=== PATIENT | female | born 1935 | race Caucasian/White ===

== ENCOUNTER 2017-07-23 08:29 | Outpatient (CLI) | payer MEDICARE, BC ==
--- NOTE | 2017-07-23 09:54 | PRG ---
DATE OF SERVICE: 07/23/2017 HISTORY: Ms. Kalie Greenwood is a very pleasant 82-year-old who presents to the [facility] for e valuation of a large blister of the left heel. The patient states that the blister has been present for approximately two weeks. She states that the blister has increased progressively in size over the past 2 weeks. The patient states that she was seen by Dr. Melchor and referred to the [facility] for further evaluation and treatment. The patient states that she is not currently taking any p.o . antibiotics. She denies any history of trauma from shoes precipitating the blister of her left he el. PHYSICAL EXAMINATION: VITAL SIGNS: Temperature 97.4, pulse 70, respirations 18, blood pressure 164/75. Accu-Chek 209. EXTREMITIES: The ulceration over the left lateral heel measures approximately 5.7 x 7.2 cm. An exc isional partial thickness debridement of the blister of the left heel was performed with the use of scissors. A sample of the serous fluid contained within the blister was sent for aerobic and anaero bic cultures. No cellulitis of the left foot is present. No maceration of the skin of the left gulshan t is present. No significant edema of the left foot is present on exam today. ASSESSMENT AND PLAN: 1. Left heel blister as described above. An excisional partial thickness debridement was performed in clinic today and a sample of the fluid contained within the blister was sent for aerobic and aubree erobic cultures. Dressing changes of PolyMem Silver, 4 x 4s and Kerlix will be initiated today. Th shirin dressing changes are to be performed on a daily basis after cleansing and irrigation. Antibioti c therapy will be initiated based upon the results of the cultures obtained today. Ms. Greenwood is to c ontinue the preceding dressing changes until the wound of her left lateral heel has healed completel y. The patient understands and is in agreement with the preceding treatment plan. Ms. Greenwood will be discharged from clinic today with followup on a p.r.n. basis. 2. Diabetes mellitus. The patient's Accu-Chek in clinic today is 209. The patient has been told t hat for optimal wound healing, her blood glucoses should remain below 150. 3. Hypertension. 4. Atrial fibrillation, status post ablation. 5. Coronary artery disease. 6. Chronic obstructive pulmonary disease.
[2017-07-23] MEDS ORDERED: Sodium Chloride 0.9% 15 ML NEB ONE (22:47)
[2017-07-23] MEDS ORDERED: Lidocaine 2% Jelly 5 ML TUBE ONE (22:47)
== END 2017-07-23 08:30 | disposition home or self-care (01) ==
LOC: WCC 08:29
PROVIDERS: ATTEND Family Medicine
DX: E11.621 Type 2 diabetes mellitus with foot ulcer (principal); L97.421 Non-pressure chronic ulcer of left heel and midfoot limited to breakdown of skin; I10 Essential (primary) hypertension; I48.91 Unspecified atrial fibrillation; I25.10 Atherosclerotic heart disease of native coronary artery without angina pectoris; J44.9 Chronic obstructive pulmonary disease, unspecified
CPT/HCPCS: 82962; 87070; 87075; 87205; 97139; 97597; 97598; G0463; 36416; 99213; A4218

== ENCOUNTER 2017-09-27 10:14 | Outpatient (CLI) | payer MEDICARE, BC ==
--- NOTE | 2017-09-27 16:58 | PRG ---
DATE OF SERVICE: 09/27/2017 HISTORY: Ms. Kalie Greenwood is a very pleasant 82-year-old, who presents to the Wound Center for e valuation of multiple breaks in the skin of the left foot. The patient reports discomfort and pain a ssociated with the breaks in the skin of her left foot. She states that the pain and discomfort of h er left foot has become worse with the cold weather. The patient states that she keeps the skin of h er left foot covered with a sock at all times. The patient states that she has been utilizing shoes, which did not come into contact with the skin over the left Achilles tendon. PHYSICAL EXAMINATION: VITAL SIGNS: Temperature 97.5, pulse 70, respirations 20, blood pressure 181/8. Accu-Chek 121. EXTREMITIES: Multiple breaks in the skin over the left foot are present. The largest break is prese nt in the skin over the left heel and measures approximately 0.4 x 0.3 cm. No purulent drainage is a ssociated with any of the breaks in the skin of the left foot. No cellulitis of the left foot is pre sent. No maceration of the skin of the left foot is present. No significant edema of the left foot is present on exam today. ASSESSMENT AND PLAN: 1. Multiple breaks in the skin of the left foot as described above. The largest break in the skin o connie the left foot is present over the left heel and measures approximately 0.3 x 0.4 cm. The patient has been asked to continue to keep the skin of her left foot covered with a sock at all times. She has also been asked to apply Elta cream to the skin of her left foot on a daily basis. The patient u nderstands and is in agreement with the preceding treatment plan. She states she will continue to ut ilize shoes, which did not come into contact with the skin over the left Achilles tendon. Ms. Greenwood w ill be discharged from clinic today with followup on a p.r.n. basis. 2. Diabetes mellitus. The patient's Accu-Chek in clinic today is 121. The patient has been reminde d that for optimal wound healing, her blood glucoses should remain below 150. 3. Hypertension. 4. Atrial fibrillation, status post ablation. 5. Coronary artery disease. 6. Chronic obstructive pulmonary disease.
== END 2017-09-27 10:15 | disposition home or self-care (01) ==
LOC: WCC 10:14
PROVIDERS: ATTEND Family Medicine
DX: L98.8 Other specified disorders of the skin and subcutaneous tissue (principal); E11.9 Type 2 diabetes mellitus without complications; I10 Essential (primary) hypertension; I48.91 Unspecified atrial fibrillation; I25.10 Atherosclerotic heart disease of native coronary artery without angina pectoris; J44.9 Chronic obstructive pulmonary disease, unspecified

== ENCOUNTER 2017-12-31 08:07 | Outpatient (CLI) | payer MEDICARE, BC ==
[2017-12-31] MEDS ORDERED: Sodium Chloride 0.9% 15 ML NEB ONE (09:00)
[2017-12-31] MEDS ORDERED: Lidocaine 2% Jelly 5 ML TUBE ONE (09:00)
--- NOTE | 2017-12-31 09:35 | PRG ---
DATE OF SERVICE: 12/31/2017 SUBJECTIVE: Ms. Kalie Greenwood is a very pleasant 82-year-old who presents to the Wound Center for evaluation of an ulceration over the left posterior heel. The patient states she has been dressing t he ulceration with a Band-Aid. The patient also reports significant pain associated with the ulcerat ion. The patient has no other complaints today. She denies any fever or chills. OBJECTIVE: VITAL SIGNS: Temperature 97.4, pulse 70, respiration 16, blood pressure 148/66, Accu-Chek 119. EXTREMITIES: An ulceration over the left posterior heel is present which measures approximately 1.0 x 0.9 cm. Necrotic and nonviable tissue present within the wound margins was debrided with an excisi onal full-thickness debridement with the use of a curet. No purulent drainage is associated with the wound. No erythema of the skin surrounding the wound is present. No maceration of the skin of the periwound is noted. A dorsalis pedis pulse is palpable on the left. No significant edema of the lef t foot is present on exam today. ASSESSMENT AND PLAN: 1. Ulceration of left posterior heel, dressing changes of Promogran and Silvercel and bordered gauze will be initiated today. These dressing changes are to be performed on a daily basis after cleansin g and irrigation. Arrangements will also be made for the home delivery of dressing supplies. I will see Ms. Greenwood again in one week. 2. Diabetes mellitus. The patient's Accu-Chek in clinic today is 119. The patient has been reminde d that for optimal wound healing, her blood glucoses should remain below 150. 3. Hypertension. 4. Atrial fibrillation, status post ablation. 5. Coronary artery disease. 6. Chronic obstructive pulmonary disease.
== END 2017-12-31 08:08 | disposition home or self-care (01) ==
LOC: WCC 08:07
PROVIDERS: ATTEND Family Medicine
DX: E11.621 Type 2 diabetes mellitus with foot ulcer (principal); L97.429 Non-pressure chronic ulcer of left heel and midfoot with unspecified severity; I10 Essential (primary) hypertension; J44.9 Chronic obstructive pulmonary disease, unspecified; I25.10 Atherosclerotic heart disease of native coronary artery without angina pectoris; I48.91 Unspecified atrial fibrillation
CPT/HCPCS: 11042; A4218

== ENCOUNTER 2018-01-07 12:59 | Outpatient (CLI) | payer MEDICARE, BC ==
[~2018-01-07 12:59] MED LIST: Lidocaine 2% Jelly 5 ML TUBE ONE; Sodium Chloride 0.9% 15 ML NEB ONE
--- NOTE | 2018-01-07 14:22 | PRG ---
DATE OF SERVICE: 01/07/2018 HISTORY: Ms. Kalie Greenwood is a very pleasant 82-year-old who presents to the Wound Center for evaluation of an ulceration over the left posterior heel. Since the patient's last visit, Ms. Greenwood has been receiving dressing changes of Promogran followed by Silvercel with the assistance of Home Health. Again, the patient complains of significant pain associated with the ulceration. Ms. Greenwood has no other complaints today. She denies any fever or chills. PHYSICAL EXAMINATION: VITAL SIGNS: Temperature 97.4, pulse 70, respirations 20, blood pressure 161/ 70. Accu-Chek 176. EXTREMITIES: An ulceration over the left posterior heel is present which measures approximately 1.1 x 1.0 cm. Necrotic and nonviable tissue present within the wound margins was debrided with an excisional full-thickness debridement. No purulent drainage is associated with the wound. No erythema of the skin surrounding the wound is present. No maceration of the skin of the periwound is noted. No significant edema of the left foot is present on exam today. ASSESSMENT AND PLAN: 1. Ulceration of left posterior heel. Dressing changes of Promogran and Silvercel will be continued on a daily basis after cleansing and irrigation with the assistance of Home Health. I will see Ms. Greenwood again in 3 weeks. 2. Diabetes mellitus. The patient's Accu-Chek in clinic today is 176. The patient has been reminded that for optimal wound healing, her blood glucoses should remain below 150. 3. Hypertension. 4. Atrial fibrillation, status post ablation. 5. Coronary artery disease. 6. Chronic obstructive pulmonary disease. [facility]
== END 2018-01-07 13:00 | disposition home or self-care (01) ==
LOC: WCC 12:59
PROVIDERS: ATTEND Family Medicine
DX: E11.621 Type 2 diabetes mellitus with foot ulcer (principal); L97.429 Non-pressure chronic ulcer of left heel and midfoot with unspecified severity; I10 Essential (primary) hypertension; I48.91 Unspecified atrial fibrillation; I25.10 Atherosclerotic heart disease of native coronary artery without angina pectoris; J44.9 Chronic obstructive pulmonary disease, unspecified
CPT/HCPCS: 11042; 36416; A4218

== ENCOUNTER 2018-01-28 13:04 | Outpatient (CLI) | payer MEDICARE, BC ==
--- NOTE | 2018-01-28 14:12 | PRG ---
DATE OF SERVICE: 01/28/2018 HISTORY: Ms. Kalie Greenwood is a very pleasant 82-year-old who presents to the Wound Center for ev aluation of an ulceration of the left posterior heel. Since the patient's last visit, Ms. Greenwood has b een receiving dressing changes of Promogran followed by Silvercel for her left posterior heel ulcerat ion. The patient again complains of significant pain associated with the ulceration. Ms. Greenwood has n o other complaints today. She denies any fever or chills. PHYSICAL EXAMINATION: VITAL SIGNS: Temperature 97.8, pulse 71, respirations 21, blood pressure 140/58. Accu-Chek 121. EXTREMITIES: An ulceration over the left posterior heel is present, which measures approximately 1.0 x 1.0 cm. The dimensions of the wound at the time of the patient's visit on 01/07/2018 were approxi mately 1.1 x 1.0 cm. No purulent drainage is associated with the wound. No erythema of the skin niharika rounding the wound is present. No maceration of the skin of the periwound is noted. No significant edema of the left foot is present on exam today. ASSESSMENT AND PLAN: 1. Ulceration of left posterior heel, dressing changes of Medihoney and bordered gauze will be initi ated today. These dressing changes are to be performed on a daily basis or every other day after martha ansing and irrigation. The patient states she is to undergo percutaneous revascularization of the le ft lower extremity by Dr. Alejo. I will see Ms. Greenwood again after she has undergone percutaneous revascularization of the left lower extremity. 2. Diabetes mellitus. The patient's Accu-Chek in clinic today is 121. The patient has been reminde d that for optimal wound healing, her blood glucoses should remain below 150. 3. Hypertension. 4. Atrial fibrillation, status post ablation. 5. Coronary artery disease. 6. Chronic obstructive pulmonary disease.
== END 2018-01-28 13:05 | disposition home or self-care (01) ==
LOC: WCC 13:04
PROVIDERS: ATTEND Family Medicine
DX: E11.621 Type 2 diabetes mellitus with foot ulcer (principal); L97.429 Non-pressure chronic ulcer of left heel and midfoot with unspecified severity; I10 Essential (primary) hypertension; I48.91 Unspecified atrial fibrillation; I25.10 Atherosclerotic heart disease of native coronary artery without angina pectoris; J44.9 Chronic obstructive pulmonary disease, unspecified
CPT/HCPCS: 97602

== ENCOUNTER 2018-04-15 10:18 | Outpatient (CLI) | payer MEDICARE, BC ==
[~2018-04-15 10:18] MED LIST changes: -Lidocaine 2% Jelly 5 ML TUBE ONE
--- NOTE | 2018-04-15 11:25 | PRG ---
DATE OF SERVICE: 04/15/2018 HISTORY: Ms. Kalie Greenwood is a very pleasant 82-year-old, who presents to the Wound Center for e valuation of multiple ulcerations of the left posterior and lateral heel. Since the patient's last v isit, Ms. Greenwood has undergone percutaneous revascularization of the left lower extremity by Dr. Porter jakcson. The patient states that she was unable to tolerate dressing changes of Medihoney due to a burni ng sensation associated with the application of Medihoney to her wounds. Again, the patient complain s of significant pain associated with her ulcerations. The patient has no other complaints today. S he denies any fever or chills. PHYSICAL EXAMINATION: VITAL SIGNS: Temperature 97.3, pulse 69, respirations 22, blood pressure 152/86. Accu-Chek 134. EXTREMITIES: Three ulcerations of the left posterior and lateral heel are present, which measure chano roximately 0.2 x 0.2 cm, 0.2 x 0.2 cm, and 0.5 x 0.6 cm. No purulent drainage is associated with any of the wounds. No cellulitis of the left heel is appreciated. No maceration of the skin of the per iwound of any of the wounds is noted. No significant edema of the left foot is present on exam today . ASSESSMENT AND PLAN: 1. Ulcerations of left posterior and lateral heel. Dressing changes of Promogran and Mepilex border will be initiated today. These dressing changes are to be performed 3 times per week after cleansin g and irrigation with the assistance of Home Health. As stated above, since the patient was last see n in the Wound Center, Ms. Greenwood has undergone percutaneous revascularization of the left lower extrem ity by Dr. Alejo. I will see Ms. Greenwood again in 2 weeks. 2. Diabetes mellitus. The patient's Accu-Chek in clinic today is 134. The patient has been reminde d that for optimal wound healing, her blood glucoses should remain below 150. 3. Hypertension. 4. Atrial fibrillation, status post ablation. 5. Coronary artery disease. 6. Chronic obstructive pulmonary disease.
== END 2018-04-15 10:19 | disposition home or self-care (01) ==
LOC: WCC 10:18
PROVIDERS: ATTEND Family Medicine
DX: E11.621 Type 2 diabetes mellitus with foot ulcer (principal); L97.429 Non-pressure chronic ulcer of left heel and midfoot with unspecified severity; I10 Essential (primary) hypertension; I25.10 Atherosclerotic heart disease of native coronary artery without angina pectoris; J44.9 Chronic obstructive pulmonary disease, unspecified; I48.91 Unspecified atrial fibrillation; Z98.890 Other specified postprocedural states
CPT/HCPCS: A4218

== ENCOUNTER 2018-05-08 08:10 | Outpatient (CLI) | payer MEDICARE, BC ==
--- NOTE | 2018-05-08 08:56 | PRG ---
DATE OF SERVICE: 05/08/2018 HISTORY: Ms. Kalie Greenwood is a very pleasant 83-year-old who presents to the Wound Center for ev aluation of an ulceration of the left posterior heel. At the time of the patient's last visit, Ms. Ronel alicea stated that she had recently undergone percutaneous revascularization of the left lower extremity by Dr. Alejo. The patient also stated that she was unable to tolerate dressing changes of Medih oney due to a burning sensation associated with the application of Medihoney to her wounds. Again to day, Ms. Greenwood complains of significant pain associated with her ulceration. PHYSICAL EXAMINATION: VITAL SIGNS: Temperature 97.5, pulse 70, respirations 18, blood pressure 117/56. Accu-Chek 124. EXTREMITIES: One ulceration of the left posterior heel is present which measures approximately 2.2 x 2.0 cm. No purulent drainage is associated with the wound. No cellulitis of the left heel is appre ciated. No maceration of the skin of the periwound is noted. A dorsalis pedis pulse is palpable on the left. No significant edema of the left foot is present on exam today. ASSESSMENT AND PLAN: 1. Ulceration of left posterior heel. Dressing changes of Promogran will be discontinued. Dressing changes of Aquacel AG and Mepilex border will be initiated today. These dressing changes are to be performed 3 times per week after cleansing and irrigation with the assistance of Home Health. As sta nubia above, the patient recently underwent percutaneous revascularization of the left lower extremity by Dr. Alejo. I will see Ms. Greenwood again in two weeks. 2. Diabetes mellitus. The patient's Accu-Chek in clinic today is 124. The patient has been reminde d that for optimal wound healing, her blood glucoses should remain below 150. 3. Hypertension. 4. Atrial fibrillation, status post ablation. 5. Coronary artery disease. 6. Chronic obstructive pulmonary disease.
== END 2018-05-08 08:11 | disposition home or self-care (01) ==
LOC: WCC 08:10
PROVIDERS: ATTEND Family Medicine
DX: E11.621 Type 2 diabetes mellitus with foot ulcer (principal); L97.429 Non-pressure chronic ulcer of left heel and midfoot with unspecified severity; I10 Essential (primary) hypertension; I25.10 Atherosclerotic heart disease of native coronary artery without angina pectoris; J44.9 Chronic obstructive pulmonary disease, unspecified

== ENCOUNTER 2018-05-29 08:26 | Outpatient (CLI) | payer MEDICARE, BC ==
--- NOTE | 2018-05-29 10:08 | PRG ---
DATE OF SERVICE: 05/29/2018 HISTORY: Ms. Kalie Greenwood is a very pleasant 83-year-old who presents to the Wound Center for ev aluation of an ulceration of the left posterior heel. At the time of a previous visit, Ms. Greenwood stat ed that she had undergone percutaneous revascularization of the left lower extremity by Dr. Alejo . For the ulceration, the patient has received a trial of dressing changes with Medihoney in additio n to a trial of dressing changes with Promogran. Since the patient's last visit, Ms. Greenwood has receiv ed dressing changes of Aquacel AG and Mepilex border 3 times per week after cleansing and irrigation with the assistance of Home Health. PHYSICAL EXAMINATION: VITAL SIGNS: Temperature 97.6, pulse 70, respirations 21, blood pressure 144/65. Accu-Chek 157. EXTREMITIES: One ulceration of the left posterior heel is present, which measures approximately 2.2 x 1.5 cm. The dimensions of the wound at the time of the patient's visit on 05/08/2018 were approxim ately 2.2 x 2.0 cm. No purulent drainage is associated with the wound. No cellulitis of the left he el is appreciated. No maceration of the skin of the periwound is noted. A dorsalis pedis pulse is p alpable on the left. No significant edema of the left foot is present on exam today. ASSESSMENT AND PLAN: 1. Ulceration of left posterior heel. Dressing changes of Aquacel AG and Mepilex border will be con tinued 3 times per week after cleansing and irrigation with the assistance of Home Health. As stated above, the patient has undergone percutaneous revascularization of the left lower extremity by Dr. Yousuf graham. I will see Ms. Greenwood again in two weeks. 2. Diabetes mellitus. The patient's Accu-Chek in clinic today is 157. The patient has been reminde d that for optimal wound healing, her blood glucoses should remain below 150. 3. Hypertension. 4. Atrial fibrillation, status post ablation. 5. Coronary artery disease. 6. Chronic obstructive pulmonary disease.
[2018-05-29] MEDS ORDERED: Sodium Chloride 0.9% 15 ML NEB ONE (16:00)
== END 2018-05-29 08:27 | disposition home or self-care (01) ==
LOC: WCC 08:26
PROVIDERS: ATTEND Family Medicine
DX: E11.621 Type 2 diabetes mellitus with foot ulcer (principal); L97.429 Non-pressure chronic ulcer of left heel and midfoot with unspecified severity; I10 Essential (primary) hypertension; I48.91 Unspecified atrial fibrillation; I25.10 Atherosclerotic heart disease of native coronary artery without angina pectoris; J44.9 Chronic obstructive pulmonary disease, unspecified
CPT/HCPCS: 36416; 97602; A4218

== ENCOUNTER 2018-06-19 08:35 | Outpatient (CLI) | payer MEDICARE, BC ==
--- NOTE | 2018-06-19 09:50 | PRG ---
DATE OF SERVICE: 06/19/2018 HISTORY: Ms. Kalie Greenwood is a very pleasant 83-year-old, who presents to the Wound Center for e valuation of an ulceration of the left posterior heel. At the time of a previous visit, Ms. Greenwood sta nubia that she had undergone percutaneous revascularization of the left lower extremity by Dr. Vonda lopez. For the ulceration, the patient has received a trial of dressing changes with Medihoney, in addit ion to a trial of dressing changes with Promogran. The patient has also received a trial of dressing changes with Aquacel AG followed by Mepilex border 3 times per week after cleansing and irrigation w ith the assistance of Home Health. PHYSICAL EXAMINATION: VITAL SIGNS: Temperature 98.3, pulse 72, respirations 16, blood pressure 134/61. EXTREMITIES: One ulceration of the left posterior heel is present, which measures approximately 2.2 x 1.4 cm. The dimensions of the wound at the time of the patient's visit on 05/29/2018 were approxim ately 2.2 x 1.5 cm. No purulent drainage is associated with the wound. No cellulitis of the left he el is appreciated. No maceration of the skin of the periwound is noted. A dorsalis pedis pulse is p alpable on the left. No significant edema of the left foot is present on exam today. ASSESSMENT AND PLAN: 1. Ulceration of left posterior heel. Dressing changes of Aquacel AG and Mepilex border are to be p erformed 3 times per week after cleansing and irrigation with the assistance of Home Health. As stat ed above, the patient has undergone percutaneous revascularization of the left lower extremity by Dr. Alejo. I will see Ms. Greenwood again in 2 weeks. At this time, consideration will be given to juliane tment with a skin substitute, specifically Hyalomatrix, if the ulceration is still present at this ti me. 2. Diabetes mellitus. Accu-Cheks will be obtained at the time of the patient's clinic visits. The patient has been reminded that, for optimal wound healing, her blood glucoses should remain below 150 . 3. Hypertension. 4. Atrial fibrillation, status post ablation. 5. Coronary artery disease. 6. Chronic obstructive pulmonary disease.
[2018-06-19] MEDS ORDERED: Sodium Chloride 0.9% 15 ML NEB ONE (15:00)
== END 2018-06-19 08:36 | disposition home or self-care (01) ==
LOC: WCC 08:35
PROVIDERS: ATTEND Family Medicine
DX: E11.621 Type 2 diabetes mellitus with foot ulcer (principal); L97.429 Non-pressure chronic ulcer of left heel and midfoot with unspecified severity; I10 Essential (primary) hypertension; I48.91 Unspecified atrial fibrillation; I25.10 Atherosclerotic heart disease of native coronary artery without angina pectoris; J44.9 Chronic obstructive pulmonary disease, unspecified
CPT/HCPCS: 36416; 97602; A4218

== ENCOUNTER 2018-07-03 08:39 | Outpatient (CLI) | payer MEDICARE, BC ==
--- NOTE | 2018-07-03 10:32 | PRG ---
DATE OF SERVICE: 07/03/2018 HISTORY: Ms. Kalie Greenwood is a very pleasant 83-year-old who presents to the Wound Center for e valuation of an ulceration of the left posterior heel. At the time of a previous visit, Ms. Greenwood sta nubia that she had undergone percutaneous revascularization of the left lower extremity by Dr. Vonda lopez. For the ulceration, the patient has received a trial of dressing changes with Medihoney in additi on to a trial of dressing changes with Promogran. The patient has also received a trial of dressing changes with Aquacel AG followed by Mepilex border 3 times per week after cleansing and irrigation wi th the assistance of Home Health. PHYSICAL EXAMINATION: VITAL SIGNS: Temperature 97.6, pulse 69, respirations 19, blood pressure 161/70. Accu-Chek 154. EXTREMITIES: One ulceration of the left posterior heel is present, which measures approximately 2.2 x 1.6 cm. The dimensions of the wound at the time of the patient's visit on 06/19/2018 were approxim ately 2.2 x 1.4 cm. Granulation tissue is visible within the wound margins. No purulent drainage is associated with the wound. No cellulitis of the left heel is appreciated. No maceration of the ski n of the periwound is noted. No significant edema of the left foot is present on exam today. Hyalom atrix was applied to the wound bed of the ulceration after copious irrigation of the wound bed with n ormal saline. Prior to application of the Hyalomatrix, the silicone layer was fenestrated with a sca lpel. Adaptic was placed over the silicone layer followed by 4 x 4s, ABD, and Kerlix. ASSESSMENT AND PLAN: 1. Ulceration of left posterior heel. Hyalomatrix was applied to the wound bed of the ulceration to day. Orders will be transmitted to Home Health for dressing changes of Adaptic, 4 x 4s and an ABD an d Kerlix 3 times per week. As stated above, the patient has undergone percutaneous revascularization of the left lower extremity by Dr. Alejo. I will see Ms. Greenwood again in one week. At this time, consideration will be given to another placement of Hyalomatrix. 2. Diabetes mellitus. The patient's Accu-Chek in clinic today is 154. The patient has been reminde d that for optimal wound healing, her blood glucoses should remain below 150. 3. Hypertension. 4. Atrial fibrillation, status post ablation. 5. Coronary artery disease. 6. Chronic obstructive pulmonary disease.
[2018-07-03] MEDS ORDERED: Sodium Chloride 0.9% 15 ML NEB ONE (15:51)
== END 2018-07-03 08:40 | disposition home or self-care (01) ==
LOC: WCC 08:39
PROVIDERS: ATTEND Family Medicine
DX: E11.621 Type 2 diabetes mellitus with foot ulcer (principal); L97.429 Non-pressure chronic ulcer of left heel and midfoot with unspecified severity; I10 Essential (primary) hypertension; I48.91 Unspecified atrial fibrillation; I25.10 Atherosclerotic heart disease of native coronary artery without angina pectoris; J44.9 Chronic obstructive pulmonary disease, unspecified
CPT/HCPCS: A4218; C5275; Q4117

== ENCOUNTER 2018-07-10 08:11 | Outpatient (CLI) | payer MEDICARE, BC ==
--- NOTE | 2018-07-10 09:20 | PRG ---
DATE OF SERVICE: 07/10/2018 HISTORY: Ms. Kalie Greenwood is a very pleasant 83-year-old who presents to the Wound Center for ev aluation of an ulceration of the left posterior heel. At the time of a previous visit, Ms. Greenwood stat ed that she had undergone percutaneous revascularization of the left lower extremity by Dr. Cristian larose. For the ulceration and the patient received a trial of dressing changes with Medihoney in ad dition to a trial of dressing changes with Promogran. The patient also received a trial of dressing changes with Aquacel AG followed by Mepilex border 3 times per week after cleansing and irrigation wi th the assistance of Home Health. At the time of the patient's last visit Hyalomatrix was applied to the wound bed of the ulceration. PHYSICAL EXAMINATION: VITAL SIGNS: Temperature 97.6, pulse 70, respirations 24, blood pressure 137/98. Accu-Chek 134. EXTREMITIES: One ulceration of the left posterior heel is present which measures approximately 2.0 x 2.2 cm. No purulent drainage is associated with the wound. No cellulitis of the left heel is appre ciated. No maceration of the skin of the periwound is noted. A dorsalis pedis pulse is palpable on the left. No significant edema of the left foot is present on exam today. The Hyalomatrix along wit h the silicone layer is intact over the wound bed of the ulceration. ASSESSMENT AND PLAN: 1. Ulceration of left posterior heel. The patient is receiving treatment with Hyalomatrix. Orders will be transmitted to Home Health for dressing changes of Adaptic, an ABD and Kerlix 3 times per radha lantigua. As stated above, the patient has undergone percutaneous revascularization of the left lower extre mity by Dr. Alejo. I will see Ms. Greenwood again in 2 weeks. 2. Diabetes mellitus. The patient's Accu-Chek in clinic today is 134. The patient has been reminde d that for optimal wound healing, her blood glucoses should remain below 150. 3. Hypertension. 4. Atrial fibrillation, status post ablation. 5. Coronary artery disease. 6. Chronic obstructive pulmonary disease.
[2018-07-10] MEDS ORDERED: Sodium Chloride 0.9% 15 ML NEB ONE (09:56)
== END 2018-07-10 08:12 | disposition home or self-care (01) ==
LOC: WCC 08:11
PROVIDERS: ATTEND Family Medicine
DX: E11.621 Type 2 diabetes mellitus with foot ulcer (principal); L97.429 Non-pressure chronic ulcer of left heel and midfoot with unspecified severity; J44.9 Chronic obstructive pulmonary disease, unspecified; I25.10 Atherosclerotic heart disease of native coronary artery without angina pectoris; I10 Essential (primary) hypertension; I48.91 Unspecified atrial fibrillation
CPT/HCPCS: 97602; A4218

== ENCOUNTER 2018-07-24 08:52 | Outpatient (CLI) | payer MEDICARE, BC ==
--- NOTE | 2018-07-24 09:58 | PRG ---
DATE OF SERVICE: 07/24/2018 HISTORY: Ms. Kalie Greenwood is a very pleasant 83-year-old who presents to the [facility] for ev aluation of an ulceration of the left posterior heel. At the time of a previous visit, Ms. Greenwood stat ed that she had undergone percutaneous revascularization of the left lower extremity by Dr. Cristian larose. For the ulceration the patient has received a trial of dressing changes with Medihoney in ad dition to a trial of dressing changes with Promogran. The patient also received a trial of dressing changes with Aquacel AG followed by Mepilex border 3 times per week after cleansing and irrigation wi th the assistance of Home Health. Presently, the patient is receiving treatment with Hyalomatrix. PHYSICAL EXAMINATION: VITAL SIGNS: Temperature 97.6, pulse 69, respirations 18, blood pressure 149/63. Accu-Chek 154. EXTREMITIES: One ulceration of the left posterior heel is present which measures approximately 2.2 x 1.9 cm. The dimensions of the wound at the time of the patient's visit on 07/10/2018 were approxima tely 2.0 x 2.2 cm. No purulent drainage is associated with the wound. Granulation tissue is visible within the wound margins. Nonviable tissue present within the wound margins was debrided with an ex cisional full-thickness debridement with the use of scissors. No cellulitis of the left heel is appr eciated. No maceration of the skin of the periwound is noted. No significant edema of the left foot is present on exam today. Hyalomatrix was applied to the wound bed of the ulceration followed by Ad aptic and Mepilex border. The silicone layer of the Hyalomatrix was fenestrated prior to application of the Hyalomatrix silicone floor layer to the wound bed. ASSESSMENT AND PLAN: 1. Ulceration of left posterior heel. The patient is receiving treatment with Hyalomatrix. Orders will be transmitted to Home Health for dressing changes of Adaptic and Mepilex border 3 times per radha lantigua. As stated above, the patient has undergone percutaneous revascularization of the left lower extre mity by Dr. Alejo. I will see Ms. Greenwood again in 2 weeks. 2. Diabetes mellitus. The patient's Accu-Chek in clinic today is 154. The patient has been reminde d that for optimal wound healing, her blood glucoses should remain below 150. 3. Hypertension. 4. Atrial fibrillation, status post ablation. 5. Coronary artery disease. 6. Chronic obstructive pulmonary disease.
[2018-07-24] MEDS ORDERED: Sodium Chloride 0.9% 15 ML NEB ONE (18:00)
== END 2018-07-24 08:53 | disposition home or self-care (01) ==
LOC: WCC 08:52
PROVIDERS: ATTEND Family Medicine
DX: E11.621 Type 2 diabetes mellitus with foot ulcer (principal); L97.429 Non-pressure chronic ulcer of left heel and midfoot with unspecified severity; I10 Essential (primary) hypertension; I48.91 Unspecified atrial fibrillation; I25.10 Atherosclerotic heart disease of native coronary artery without angina pectoris; J44.9 Chronic obstructive pulmonary disease, unspecified
CPT/HCPCS: 97139; C5275; A4218

== ENCOUNTER 2018-08-07 09:01 | Outpatient (CLI) | payer MEDICARE, BC ==
--- NOTE | 2018-08-07 12:11 | PRG ---
DATE OF SERVICE: 08/07/2018 HISTORY: Ms. Kalie Greenwood is a very pleasant 83-year-old, who presents to the Wound Center for evaluation of an ulceration of the left posterior heel over the Achilles tendon. At the time of her previous visit, Ms. Greenwood stated that she had undergone percutaneous revascularization of the left lower extremity by Dr. Cristian Alejo. For the ulceration, the patient has received a trial of dressing changes with Medihoney in addition to a trial of dressing changes with Promogran. The patient also received a trial of dressing changes with Aquacel Ag followed by Mepilex border three times per week after cleansing and irrigation with the assistance of Home Health. Currently, the patient is receiving treatment with Hyalomatrix. PHYSICAL EXAMINATION: VITAL SIGNS: Temperature 98.1, pulse 70, respirations 17, blood pressure 146/57, and Accu-Chek 122. EXTREMITIES: One ulceration of the left posterior heel is present, which measures approximately 3.0 x 3.0 cm. The dimensions of the wound at the time of the patient's visit on 07/24/2018 were approximately 2.2 x 1.9 cm. A small amount of granulation tissue is visible within the wound margins. No purulent drainage is associated with the wound. Erythema of the skin surrounding the wound is present. No maceration of the skin of the periwound is noted. No significant edema of the left foot is present on exam today. The wound is exquisitely tender to palpation. Tenderness is visible within the wound margins. ASSESSMENT AND PLAN: 1. Ulceration of the left posterior heel. The patient has received treatment with Hyalomatrix. Orders will be transmitted to Home Health for a trial of negative-pressure therapy, in addition, transcutaneous oxygen mapping of the distal left lower extremity will be obtained. As stated above, the patient has undergone percutaneous revascularization of the left lower extremity by Dr. Alejo. I also discussed the treatment and plan with Dr. Alejo. I will see Ms. Greenwood again in two weeks. 2. Diabetes mellitus. The patient's Accu-Chek in clinic today is 122. The patient has been reminded that for optimal wound healing, her blood glucoses should remain below 150. 3. Hypertension. 4. Atrial fibrillation, status post ablation. 5. Coronary artery disease. 6. Chronic obstructive pulmonary disease. Job ID: [id number]
[2018-08-07] MEDS ORDERED: Sodium Chloride 0.9% 15 ML NEB ONE (18:00)
== END 2018-08-07 09:02 | disposition home or self-care (01) ==
LOC: WCC 09:01
PROVIDERS: ATTEND Family Medicine
DX: E11.621 Type 2 diabetes mellitus with foot ulcer (principal); L97.429 Non-pressure chronic ulcer of left heel and midfoot with unspecified severity; I10 Essential (primary) hypertension; I25.10 Atherosclerotic heart disease of native coronary artery without angina pectoris; J44.9 Chronic obstructive pulmonary disease, unspecified
CPT/HCPCS: A4218

== ENCOUNTER 2018-09-05 14:41 | Outpatient (CLI) | payer MEDICARE, BC ==
[2018-09-05] MEDS ORDERED: Sodium Chloride 0.9% 15 ML NEB ONE (15:00)
--- NOTE | 2018-09-05 16:10 | PRG ---
DATE OF SERVICE: 09/05/2018 SUBJECTIVE: Ms. Kalie Greenwood is a very pleasant 83-year-old, who presents to the Wound Center for evaluation of an ulceration of the left posterior heel over the Achilles tendon. The patient is now receiving negative pressure therapy with dressing changes of the wound VAC 3 times per week with the assistance of Home Health. Ms. Greenwood reports less pain associated with her ulceration than at the time of her visit on 08/07/2018. PHYSICAL EXAMINATION: VITAL SIGNS: Temperature 97.6, pulse 70, respirations 20, blood pressure 128/58. Accu-Chek 111. EXTREMITIES: One ulceration of the left posterior heel is present, which measures approximately 5.5 x 3.0 cm. The dimensions of the wound at the time of the patient's visit on 08/07/2018 were approximately 3.0 x 3.0 cm. Granulation tissue is visible within the wound margins. No purulent drainage is associated with the wound. No cellulitis of the left ankle is appreciated on exam today. No significant edema of the left foot is present on exam today. The wound is no longer exquisitely tender to palpation. Tendon is again visible within the wound margins. ASSESSMENT AND PLAN: 1. Ulceration of left posterior heel. Negative pressure therapy will be continued with dressing changes of the wound VAC 3 times per week with the assistance of Home Health. I will see Ms. Greenwood again in 2 weeks. 2. Diabetes mellitus. The patient's Accu-Chek in clinic today is 111. The patient has been reminded that for optimal wound healing her blood glucoses should remain below 150. 3. Hypertension. 4. Atrial fibrillation, status post ablation. 5. Coronary artery disease. 6. Chronic obstructive pulmonary disease. Job ID: [id number]
== END 2018-09-05 14:42 | disposition home or self-care (01) ==
LOC: WCC 14:41
PROVIDERS: ATTEND Family Medicine
DX: E11.621 Type 2 diabetes mellitus with foot ulcer (principal); L97.429 Non-pressure chronic ulcer of left heel and midfoot with unspecified severity; I25.10 Atherosclerotic heart disease of native coronary artery without angina pectoris; J44.9 Chronic obstructive pulmonary disease, unspecified
CPT/HCPCS: 97602; A4218

== ENCOUNTER 2018-09-13 09:01 | Outpatient (CLI) | payer MEDICARE, BC ==
--- NOTE | 2018-09-18 08:30 | TCOM ---
DATE OF STUDY: 09/13/2018 TRANSCUTANEOUS OXIMETRY ASSESSMENT CLINICAL INFORMATION: Ms. Kalie Greenwood is an 83-year-old with a past medical history significant for diabetes mellitus, hypertension, atrial fibrillation, coronary artery disease, and COPD. The patient has an ulceration of the left posterior ankle over the Achilles tendon. The patient is status post percutaneous revascularization of the left lower extremity by Dr. Alejo. IMPRESSION: All transcutaneous oxygen values of the distal left lower extremity, reflex hypoxia under ambient conditions. The response of all values to hyperoxic challenge is consistent with significant regional ischemia. The above study suggests the healing of the left posterior ankle wound may be complicated by a compromise in oxygen dependent wound healing. Job ID: [id number]
== END 2018-09-13 09:02 | disposition home or self-care (01) ==
LOC: HBO 09:01
PROVIDERS: ATTEND Family Medicine
DX: T81.89XD Other complications of procedures, not elsewhere classified, subsequent encounter (principal)
CPT/HCPCS: 93923

== ENCOUNTER 2018-09-19 14:52 | Outpatient (CLI) | payer MEDICARE, BC ==
[~2018-09-19 14:52] MED LIST changes: +Lidocaine 2% Jelly 5 ML TUBE ONE
--- NOTE | 2018-09-19 16:51 | PRG ---
DATE OF SERVICE: 09/19/2018 HISTORY: Ms. Kalie Greenwood is a very pleasant 83-year-old, who presents to the Wound Center for evaluation of an ulceration of the left posterior heel over the Achilles tendon. The patient is now receiving negative pressure therapy with dressing changes of the wound VAC 3 times per week with the assistance of Home Health. The patient has no complaints today. She denies any fever or chills. She states that recently she underwent percutaneous revascularization of the left lower extremity by Dr. Alejo after an earlier left lower extremity percutaneous revascularization also by Dr. Alejo. OBJECTIVE: VITAL SIGNS: Temperature 97.4, pulse 71, respirations 24, blood pressure 123/60. Accu-Chek 160. EXTREMITIES: One ulceration of the left posterior heel is present, which measures approximately 5.9 x 3.0 cm. The dimensions of the wound at the time of the patient's visit on 09/05/2018 were approximately 5.5 x 3.0 cm. Granulation tissue is visible within the wound margins. No purulent drainage is associated with the wound. No cellulitis of the left ankle is appreciated on exam today. No maceration of the skin of the periwound is noted. No significant edema of the left foot is present on exam today. The tendon is again visible within the wound margins. ASSESSMENT AND PLAN: 1. Ulceration of left posterior heel. Negative pressure therapy will be continued with dressing changes of the wound VAC 3 times per week with the assistance of Home Health. I will see Ms. Greenwood again in one week. At this time, consideration will be given to the application of a bioengineered skin substitute in conjunction with negative pressure therapy. The patient also agrees to a trial of hyperbaric oxygen therapy. The patient denies any history of congestive heart failure, seizure disorder, pneumothorax, crushing chest trauma, blood disorders including hereditary spherocytosis, recent retinal surgery, or the administration of any chemotherapeutic agents contraindicating hyperbaric oxygen therapy. The patient understands the risks and benefits of hyperbaric oxygen therapy and wishes to proceed. I have explained to the patient that hyperbaric oxygen therapy is indicated in view of the depth of the wound, Vann grade 3, with tendon exposure and the duration of the wound, which has been present since 05/08/2018. Transcutaneous oxygen mapping of the distal left lower extremity revealed hypoxia of all distal left lower extremity values under ambient conditions. The response of all values to hyperoxic challenge was consistent with significant regional ischemia. 2. Diabetes mellitus. The patient's Accu-Chek in clinic today is 160. The patient has been reminded that for optimal wound healing. Her blood glucoses should remain below 150. 3. Hypertension. 4. Atrial fibrillation, status post ablation. 5. Coronary artery disease. 6. Chronic obstructive pulmonary disease. Job ID: [id number]
== END 2018-09-19 14:53 | disposition home or self-care (01) ==
LOC: WCC 14:52
PROVIDERS: ATTEND Family Medicine
DX: E11.621 Type 2 diabetes mellitus with foot ulcer (principal); L97.429 Non-pressure chronic ulcer of left heel and midfoot with unspecified severity; I10 Essential (primary) hypertension; I48.91 Unspecified atrial fibrillation; I25.10 Atherosclerotic heart disease of native coronary artery without angina pectoris; J44.9 Chronic obstructive pulmonary disease, unspecified
CPT/HCPCS: 36416; 87070; 87205; A4218

== ENCOUNTER 2018-09-23 11:04 | Outpatient (CLI) | payer MEDICARE, BC | END 2018-09-23 11:05 | disposition home or self-care (01) | LOC: HBO 11:04 | PROVIDERS: ATTEND Family Medicine | DX: E11.622 Type 2 diabetes mellitus with other skin ulcer (principal); L97.323 Non-pressure chronic ulcer of left ankle with necrosis of muscle; E11.51 Type 2 diabetes mellitus with diabetic peripheral angiopathy without gangrene | CPT/HCPCS: 93923; 97139; G0277 ==

== ENCOUNTER 2018-09-24 15:25 | Outpatient (CLI) | payer MEDICARE, BC | END 2018-09-24 15:26 | disposition home or self-care (01) | LOC: HBO 15:25 | PROVIDERS: ATTEND Family Medicine | DX: E11.622 Type 2 diabetes mellitus with other skin ulcer (principal); L97.323 Non-pressure chronic ulcer of left ankle with necrosis of muscle; E11.51 Type 2 diabetes mellitus with diabetic peripheral angiopathy without gangrene | CPT/HCPCS: G0277 ==

== ENCOUNTER 2018-09-25 10:51 | Outpatient (CLI) | payer MEDICARE, BC | END 2018-09-25 10:52 | disposition home or self-care (01) | LOC: HBO 10:51 | PROVIDERS: ATTEND Family Medicine | DX: E11.51 Type 2 diabetes mellitus with diabetic peripheral angiopathy without gangrene (principal); E11.621 Type 2 diabetes mellitus with foot ulcer; L97.323 Non-pressure chronic ulcer of left ankle with necrosis of muscle | CPT/HCPCS: G0277 ==

== ENCOUNTER 2018-09-26 11:20 | Outpatient (CLI) | payer MEDICARE, BC ==
[2018-09-26] MEDS ORDERED: Lidocaine 2% PF 5 ML VIAL ONE (15:34)
[2018-09-26] MEDS ORDERED: Sodium Chloride 0.9% 15 ML NEB ONE (15:34)
--- NOTE | 2018-09-26 16:39 | PRG ---
DATE OF SERVICE: 09/26/2018 HISTORY: Ms. Kalie Greenwood is a very pleasant 83-year-old, who presents to the Wound Center for evaluation of an ulceration of the left posterior heel over the Achilles tendon. The patient is presently receiving negative pressure therapy with dressing changes of the wound VAC 3 times per week with the assistance of Home Health. The patient has no complaints today. She denies any fever or chills. The patient recently underwent percutaneous revascularization of the left lower extremity by Dr. Alejo after an earlier left lower extremity percutaneous revascularization also by Dr. Alejo. The patient is also now receiving hyperbaric oxygen therapy for the ulceration of her left posterior heel over the Achilles tendon. PHYSICAL EXAMINATION: VITAL SIGNS: Temperature 97.6, pulse 69, respirations 24, and blood pressure 131/62. Accu-Chek 139. EXTREMITIES: An ulceration of the left posterior heel is present, which measures approximately 6.0 x 3.0 cm. The dimensions of the wound at the time of the patient's visit on 09/19/2018 were approximately 5.9 x 3.0 cm. Granulation tissue is visible within the wound margins. No purulent drainage is associated with the wound. No cellulitis of the left ankle is appreciated. No maceration of the skin of the periwound is noted. No significant edema of the left foot is present on exam today. Again, the tendon is visible within the wound margins. A large portion of the tendon appears to have ruptured. The patient is still able to dorsiflex and plantarflex her left foot. After copious irrigation of the wound, EpiFix 2 x 2 cm was applied to the wound bed of the ulceration over the inferior aspect of the ulceration over the Achilles tendon. The ulceration was then dressed with Adaptic followed by the Granufoam of the wound VAC. ASSESSMENT AND PLAN: 1. Ulceration of left posterior heel. Negative pressure therapy will be continued with dressing changes of the wound VAC with the assistance of Home Health. The next dressing change will be on 09/30/2018. I will see Ms. Greenwood again in 1 week. At this time, consideration will be given to another placement of EpiFix in conjunction with negative pressure therapy. The patient will also continue hyperbaric oxygen therapy. I have discussed the treatment plan with Dr. Mata of Orthopedic Surgery. Orthopedic Surgery will view the wound next week and consider debridement of the Achilles tendon in clinic. I have also discussed the treatment plan with Dr. Alejo. He states that he will see Ms. Greenwood in approximately 4 weeks, and at this time, consideration will be given to repeat percutaneous revascularization if the wound does not appear to be healing in a timely manner. Evaluation by Plastic Surgery for coverage of the Achilles tendon will also be arranged. 2. Diabetes mellitus. The patient's Accu-Chek in clinic today is 139. The patient has been reminded that for optimal wound healing her blood glucoses should remain below 150. 3. Hypertension. 4. Atrial fibrillation, status post ablation. 5. Coronary artery disease. 6. Chronic obstructive pulmonary disease. Job ID: [id number]
== END 2018-09-26 11:21 | disposition home or self-care (01) ==
LOC: HBO 11:20
PROVIDERS: ATTEND Family Medicine
DX: E11.621 Type 2 diabetes mellitus with foot ulcer (principal); L97.429 Non-pressure chronic ulcer of left heel and midfoot with unspecified severity; I10 Essential (primary) hypertension; I48.91 Unspecified atrial fibrillation; I25.10 Atherosclerotic heart disease of native coronary artery without angina pectoris; J44.9 Chronic obstructive pulmonary disease, unspecified
CPT/HCPCS: 82962; Q4186; 36416; A4218; J2001

== ENCOUNTER 2018-10-01 11:00 | Outpatient (CLI) | payer MEDICARE, BC | END 2018-10-01 11:01 | disposition home or self-care (01) | LOC: HBO 11:00 | PROVIDERS: ATTEND Family Medicine | DX: E11.51 Type 2 diabetes mellitus with diabetic peripheral angiopathy without gangrene (principal); L97.323 Non-pressure chronic ulcer of left ankle with necrosis of muscle | CPT/HCPCS: G0277 ==

== ENCOUNTER 2018-10-02 11:25 | Outpatient (CLI) | payer MEDICARE, BC ==
--- NOTE | 2018-10-02 16:44 | PRG ---
DATE OF SERVICE: 10/02/2018 HISTORY: Ms. Kalie Greenwood is a very pleasant 83-year-old, who presents to the Wound Center for evaluation of an ulceration of the left posterior heel over the Achilles tendon. The patient is currently receiving negative pressure therapy with dressing changes of the wound VAC 3 times per week with the assistance of Home Health. The patient recently underwent percutaneous revascularization of the left lower extremity by Dr. Alejo after an earlier left lower extremity percutaneous revascularization also by Dr. Alejo. The patient is also now receiving hyperbaric oxygen therapy for the ulceration of her left posterior heel over the Achilles tendon. At the time of the patient's visit on 09/26/2018, EpiFix was applied to the wound bed of the ulceration for treatment of the wound in conjunction with negative pressure therapy. PHYSICAL EXAMINATION: VITAL SIGNS: Temperature 98.2, pulse 72, respirations 24, blood pressure 126/65. Accu-Chek 147. EXTREMITIES: An ulceration of the left posterior heel is present, which measures approximately 6.1 x 2.8 cm. The dimensions of the wound at the time of the patient's visit on 09/26/2018 were approximately 6.0 x 3.0 cm. Granulation tissue is visible within the wound margins. No purulent drainage is associated with the wound. No cellulitis of the left ankle is appreciated. No maceration of the skin of the periwound is noted. No significant edema of the left foot is present on exam today. Again, tendon is visible within the wound margins. A portion of the tendon appears to have ruptured. ASSESSMENT AND PLAN: 1. Ulceration of left posterior heel. Negative pressure therapy will be continued with dressing changes of the wound VAC with the assistance of Home Health. I will see Ms. Greenwood next week. The patient will also continue hyperbaric oxygen therapy. I have discussed the treatment plan with Dr. Mata of Orthopedic Surgery and Dr. Reyes of Plastic Surgery. Orthopedic Surgery will view the wound next week and consider debridement of the Achilles tendon in clinic. Arrangements will be made for Ms. Greenwood to be seen in consultation by Dr. Reyes in his office. The treatment plan has also been discussed with Dr. Alejo, who states he will consider repeat percutaneous revascularization at the time of the patient's followup visit if the wound does not appear to be healing in a timely manner. 2. Diabetes mellitus. The patient's Accu-Chek in clinic today is 147. The patient has been reminded that for optimal wound healing, her blood glucoses should remain below 150. 3. Hypertension. 4. Atrial fibrillation, status post ablation. 5. Coronary artery disease. 6. Chronic obstructive pulmonary disease. Job ID: [id number]
== END 2018-10-02 11:26 | disposition home or self-care (01) ==
LOC: HBO 11:25
PROVIDERS: ATTEND Family Medicine
DX: E11.622 Type 2 diabetes mellitus with other skin ulcer (principal); L97.429 Non-pressure chronic ulcer of left heel and midfoot with unspecified severity; I25.10 Atherosclerotic heart disease of native coronary artery without angina pectoris; J44.9 Chronic obstructive pulmonary disease, unspecified; I10 Essential (primary) hypertension
CPT/HCPCS: G0277

== ENCOUNTER 2018-10-03 11:24 | Outpatient (CLI) | payer MEDICARE, BC | END 2018-10-03 11:25 | disposition home or self-care (01) | LOC: HBO 11:24 | PROVIDERS: ATTEND Family Medicine | DX: E11.51 Type 2 diabetes mellitus with diabetic peripheral angiopathy without gangrene (principal); E11.622 Type 2 diabetes mellitus with other skin ulcer; L97.323 Non-pressure chronic ulcer of left ankle with necrosis of muscle | CPT/HCPCS: G0277 ==

== ENCOUNTER 2018-10-07 10:42 | Outpatient (CLI) | payer MEDICARE, BC ==
[2018-10-07] MEDS ORDERED: Lidocaine 2% PF 100 mg/5 ml Syringe ONE (15:00)
--- NOTE | 2018-10-07 21:01 | CON ---
DATE OF CONSULTATION: CHIEF COMPLAINT: Posterior heel and Achilles wound, chronic. HISTORY OF PRESENT ILLNESS: Ms. Greenwood is an 83-year-old female who I am seeing in the [facility] Care Clinic as a consultation. The patient has a chronic wound over the Achilles aspect of her posterior heel. This is full-thickness and involves the Achilles tendon. There is necrotic Achilles tendon tissue in the wound. I was consulted to evaluate treatment of this wound. The patient has had longstanding wound care with multiple different modalities including wound VAC and hyperbaric oxygen treatment. She is also a patient of Dr. Alejo who has done several revascularization procedures for her. These unfortunately have not reportedly increased her blood flow substantially and she will likely undergo a third procedure in the next few weeks. She has been a patient of Dr. Young as well. PAST MEDICAL HISTORY: Diabetes, hypertension, atrial fibrillation, coronary artery disease, and COPD. PAST SURGICAL HISTORY: Hysterectomy, cholecystectomy, pacemaker placement, carpal tunnel release bilaterally, and previous bilateral eye surgery. Also multiple peripheral vascular surgeries and catheterizations. ALLERGIES: NO KNOWN DRUG ALLERGIES. SOCIAL HISTORY: The patient has a long history of tobacco use, although she has stopped smoking many years ago. No drug or alcohol use. FAMILY MEDICAL HISTORY: Diabetes, otherwise negative. PHYSICAL EXAMINATION: The patient is lying supine on the bed. She is under no apparent distress. She is breathing comfortably. She is talkative and answers questions appropriately. She is breathing comfortably. She has intact upper extremities without wounds. Her left lower extremity has a chronic wound of the Achilles region. This is approximately 6 cm x 3 cm. There is granulation tissue at the superior aspect of the wound; however, there is necrotic Achilles tendon tissue in the main substance of the wound. The Achilles tendon has ruptured. It is nonviable in appearance. It is necrotic. Deep to the Achilles tendon appears to be healthy tissue. The remainder of the foot and ankle are intact, although pulses are not easily palpable. The foot is warm to touch. 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 PLAN: At this point, I think the patient would benefit from excision and debridement of the Achilles tendon. We will do this at the bedside today. She will need removal of all nonviable and necrotic appearing tendon tissues to hopefully gain better coverage with granulation tissue to make her amenable to possible skin grafting or primary wound healing. She will continue her wound VAC as well as hyperbaric oxygen. She is having ongoing treatment with the Vascular Team to revascularize her leg. I will check back on her next week to see progress of the wound. PROCEDURE NOTE: The patient's left leg was again evaluated. She had necrotic Achilles tendon of approximately 4 cm. I sharply debrided the Achilles tendon using a knife as well as scissors back to healthy tissue. The granulation tissue was not excised. There was bleeding tissue deep to the Achilles tendon which appeared healthy. I debrided the Achilles tendon stump distally as well. Hemostasis was achieved. The patient will be placed back into her wound VAC device. Job ID: [id number]
== END 2018-10-07 10:43 | disposition home or self-care (01) ==
LOC: HBO 10:42
PROVIDERS: ATTEND Family Medicine
DX: E11.622 Type 2 diabetes mellitus with other skin ulcer (principal); L97.323 Non-pressure chronic ulcer of left ankle with necrosis of muscle; E11.51 Type 2 diabetes mellitus with diabetic peripheral angiopathy without gangrene
CPT/HCPCS: J2001

== ENCOUNTER 2018-10-08 10:49 | Outpatient (CLI) | payer MEDICARE, BC | END 2018-10-08 10:50 | disposition home or self-care (01) | LOC: HBO 10:49 | PROVIDERS: ATTEND Family Medicine | DX: E11.51 Type 2 diabetes mellitus with diabetic peripheral angiopathy without gangrene (principal); E11.622 Type 2 diabetes mellitus with other skin ulcer; L97.323 Non-pressure chronic ulcer of left ankle with necrosis of muscle | CPT/HCPCS: G0277 ==

== ENCOUNTER 2018-10-09 10:53 | Outpatient (CLI) | payer MEDICARE, BC ==
--- NOTE | 2018-10-09 14:43 | PRG ---
DATE OF SERVICE: 10/09/2018 HISTORY: Ms. Kalie Greenwood is a very pleasant 83-year-old, who presents to the Wound Center for evaluation of an ulceration of the left posterior heel over the Achilles tendon. The patient is presently receiving negative pressure therapy with dressing changes of the wound VAC three times per week with the assistance of Home Health. The patient recently underwent percutaneous revascularization of the left lower extremity by Dr. Alejo after an earlier left lower extremity percutaneous revascularization also by Dr. Alejo. The patient is now receiving hyperbaric oxygen therapy for the ulceration of her left posterior heel over the Achilles tendon. At the time of the patient's visit on 09/26/2018, EpiFix was applied to the wound bed of the ulceration for treatment of the wound in conjunction with negative pressure therapy. On 10/07/2018, the Achilles tendon was debrided at bedside by Dr. Ori Mata. PHYSICAL EXAMINATION: VITAL SIGNS: Temperature 97.4, pulse 69, respirations 22, blood pressure 125/59. Accu-Chek 136. EXTREMITIES: An ulceration of the left posterior heel is present, which measures approximately 6.9 x 2.7 cm. The dimensions of the wound at the time of the patient's visit on 10/02/2018 were approximately 6.1 x 2.8 cm. Granulation tissue is visible within the wound margins. No purulent drainage is associated with the wound. No cellulitis of the left ankle is appreciated. No maceration of the skin of the periwound is noted. No significant edema of the left foot is present on exam today. EpiFix was applied to the wound bed followed by Adaptic and the Granufoam of the wound VAC. ASSESSMENT AND PLAN: 1. Ulceration of left posterior heel. Negative pressure therapy will be continued with dressing changes of the wound VAC with the assistance of Home Health. The next dressing change will be in 5 days. I will see Ms. Greenwood again in one week. The wound VAC will be placed to settings of 100 mmHg continuous. The patient will also continue hyperbaric oxygen therapy. Arrangements will be made for Ms. Greenwood to be seen in consultation by Dr. Reyes in his office. The treatment plan has also been discussed with Dr. Cristian Alejo, who states he will consider a repeat percutaneous revascularization at the time of the patient's followup visit. 2. Diabetes mellitus. The patient's Accu-Chek in clinic today is 136. The patient has been reminded that for optimal wound healing, her blood glucoses should remain below 150. 3. Hypertension. 4. Atrial fibrillation, status post ablation. 5. Coronary artery disease. 6. Chronic obstructive pulmonary disease. Job ID: [id number]
[2018-10-09] MEDS ORDERED: Sodium Chloride 0.9% 15 ML NEB ONE (15:00)
== END 2018-10-09 10:54 | disposition home or self-care (01) ==
LOC: HBO 10:53
PROVIDERS: ATTEND Family Medicine
DX: E11.621 Type 2 diabetes mellitus with foot ulcer (principal); L97.429 Non-pressure chronic ulcer of left heel and midfoot with unspecified severity; I10 Essential (primary) hypertension; I25.10 Atherosclerotic heart disease of native coronary artery without angina pectoris; J44.9 Chronic obstructive pulmonary disease, unspecified; E11.51 Type 2 diabetes mellitus with diabetic peripheral angiopathy without gangrene
CPT/HCPCS: Q4186

== ENCOUNTER 2018-10-10 10:56 | Outpatient (CLI) | payer MEDICARE, BC | END 2018-10-10 10:57 | disposition home or self-care (01) | LOC: HBO 10:56 | PROVIDERS: ATTEND Family Medicine | DX: E11.51 Type 2 diabetes mellitus with diabetic peripheral angiopathy without gangrene (principal); L97.323 Non-pressure chronic ulcer of left ankle with necrosis of muscle | CPT/HCPCS: G0277 ==

== ENCOUNTER 2018-10-14 11:01 | Outpatient (CLI) | payer MEDICARE, BC | END 2018-10-14 11:02 | disposition home or self-care (01) | LOC: HBO 11:01 | PROVIDERS: ATTEND Family Medicine | DX: E11.51 Type 2 diabetes mellitus with diabetic peripheral angiopathy without gangrene (principal); L97.323 Non-pressure chronic ulcer of left ankle with necrosis of muscle | CPT/HCPCS: G0277 ==

== ENCOUNTER 2018-10-15 11:03 | Outpatient (CLI) | payer MEDICARE, BC | END 2018-10-15 11:04 | disposition home or self-care (01) | LOC: HBO 11:03 | PROVIDERS: ATTEND Family Medicine | DX: E11.622 Type 2 diabetes mellitus with other skin ulcer (principal); L97.323 Non-pressure chronic ulcer of left ankle with necrosis of muscle; E11.51 Type 2 diabetes mellitus with diabetic peripheral angiopathy without gangrene | CPT/HCPCS: G0277 ==

== ENCOUNTER 2018-10-17 11:04 | Outpatient (CLI) | payer MEDICARE, BC | END 2018-10-17 11:05 | disposition home or self-care (01) | LOC: HBO 11:04 | PROVIDERS: ATTEND Family Medicine | DX: E11.622 Type 2 diabetes mellitus with other skin ulcer (principal); L97.323 Non-pressure chronic ulcer of left ankle with necrosis of muscle; E11.51 Type 2 diabetes mellitus with diabetic peripheral angiopathy without gangrene | CPT/HCPCS: G0277 ==

== ENCOUNTER 2018-10-21 10:59 | Outpatient (CLI) | payer MEDICARE, BC ==
[~2018-10-21 10:59] MED LIST changes: -Lidocaine 2% Jelly 5 ML TUBE ONE
--- NOTE | 2018-10-21 14:53 | PRG ---
DATE OF SERVICE: 10/21/2018 HISTORY: Ms. Kalie Greenwood is a very pleasant 83-year-old, who presents to the [facility] for evaluation of an ulceration of the left posterior heel over the Achilles tendon. The patient is currently receiving negative pressure therapy with dressing changes of the wound VAC with the assistance of Home Health. The patient recently underwent percutaneous revascularization of the left lower extremity by Dr. Alejo after an earlier left lower extremity percutaneous revascularization also by Dr. Alejo. The patient is also receiving hyperbaric oxygen therapy for the ulceration of her left posterior heel over the Achilles tendon. In conjunction with negative pressure therapy, the patient is receiving treatment with EpiFix. On 10/07/2018, the Achilles tendon was debrided at bedside by Dr. Ori Mata. PHYSICAL EXAMINATION: VITAL SIGNS: Temperature 98.1, pulse 70, respirations 22, and blood pressure 129/59. Accu-Chek 164. EXTREMITIES: An ulceration of the left posterior heel is present, which measures approximately 7.5 x 2.3 cm. The dimensions of the wound at the time of the patient's visit on 10/09/2018, were approximately 6.9 x 2.7 cm. Granulation tissue is visible within the wound margins. No purulent drainage was associated with the wound. No cellulitis of the left ankle was appreciated. No maceration of the skin of the periwound was noted. No significant edema of the left foot is present on exam today. After copious irrigation of the wound bed with normal saline, EpiFix was applied to the wound bed followed by Adaptic, secured by Steri-Strips and Mastisol and ABD and 3M Coban 2 Layer Compression System. ASSESSMENT AND PLAN: 1. Ulceration of left posterior heel. EpiFix was applied to the wound bed of the ulceration today in conjunction with 3M Coban 2 Layer Compression System. Negative pressure therapy will be placed on hold. I will see Ms. Greenwood again in 1 week. The patient will continue hyperbaric oxygen therapy. The patient has also been seen by Dr. Alejo who states no further attempts at percutaneous revascularization are warranted. 2. Diabetes mellitus. The patient's Accu-Chek in clinic today is 164. The patient has been reminded that for optimal wound healing. Her blood glucoses should remain below 150. 3. Hypertension. 4. Atrial fibrillation, status post ablation. 5. Coronary artery disease. 6. Chronic obstructive pulmonary disease. Job ID: [id number]
== END 2018-10-21 11:00 | disposition home or self-care (01) ==
LOC: HBO 10:59
PROVIDERS: ATTEND Family Medicine
DX: E11.621 Type 2 diabetes mellitus with foot ulcer (principal); L97.429 Non-pressure chronic ulcer of left heel and midfoot with unspecified severity; I10 Essential (primary) hypertension; I48.91 Unspecified atrial fibrillation; I25.10 Atherosclerotic heart disease of native coronary artery without angina pectoris; J44.9 Chronic obstructive pulmonary disease, unspecified; Z98.890 Other specified postprocedural states
CPT/HCPCS: A4218; Q4131-KX-JC

== ENCOUNTER 2018-10-22 11:52 | Outpatient (CLI) | payer MEDICARE, BC | END 2018-10-22 11:53 | disposition home or self-care (01) | LOC: HBO 11:52 | PROVIDERS: ATTEND Family Medicine | DX: E11.51 Type 2 diabetes mellitus with diabetic peripheral angiopathy without gangrene (principal); E11.622 Type 2 diabetes mellitus with other skin ulcer; L97.323 Non-pressure chronic ulcer of left ankle with necrosis of muscle | CPT/HCPCS: 36416 ==

== ENCOUNTER 2018-10-23 10:44 | Outpatient (CLI) | payer MEDICARE, BC | END 2018-10-23 10:45 | disposition home or self-care (01) | LOC: HBO 10:44 | PROVIDERS: ATTEND Family Medicine | DX: E11.51 Type 2 diabetes mellitus with diabetic peripheral angiopathy without gangrene (principal); E11.622 Type 2 diabetes mellitus with other skin ulcer; L97.323 Non-pressure chronic ulcer of left ankle with necrosis of muscle | CPT/HCPCS: G0277 ==

== ENCOUNTER 2018-10-24 13:27 | Outpatient (CLI) | payer MEDICARE, BC | END 2018-10-24 13:28 | disposition home or self-care (01) | LOC: HBO 13:27 | PROVIDERS: ATTEND Family Medicine | DX: E11.622 Type 2 diabetes mellitus with other skin ulcer (principal); L97.323 Non-pressure chronic ulcer of left ankle with necrosis of muscle; E11.51 Type 2 diabetes mellitus with diabetic peripheral angiopathy without gangrene | CPT/HCPCS: 99211; G0463 ==

== ENCOUNTER 2018-10-28 11:12 | Outpatient (CLI) | payer MEDICARE, BC ==
[2018-10-28] MEDS ORDERED: Sodium Chloride 0.9% 15 ML NEB ONE (17:32)
== END 2018-10-28 11:13 | disposition home or self-care (01) ==
LOC: HBO 11:12
PROVIDERS: ATTEND Family Medicine
DX: E11.51 Type 2 diabetes mellitus with diabetic peripheral angiopathy without gangrene (principal); L97.323 Non-pressure chronic ulcer of left ankle with necrosis of muscle
CPT/HCPCS: 15275; A4218; G0277; Q4186

== ENCOUNTER 2018-10-29 13:23 | Outpatient (CLI) | payer MEDICARE, BC | END 2018-10-29 13:24 | disposition home or self-care (01) | LOC: HBO 13:23 | PROVIDERS: ATTEND Family Medicine | DX: E11.622 Type 2 diabetes mellitus with other skin ulcer (principal); E11.51 Type 2 diabetes mellitus with diabetic peripheral angiopathy without gangrene; L97.323 Non-pressure chronic ulcer of left ankle with necrosis of muscle | CPT/HCPCS: G0277 ==

== ENCOUNTER 2018-10-30 14:37 | Outpatient (CLI) | payer MEDICARE, BC | END 2018-10-30 14:38 | disposition home or self-care (01) | LOC: HBO 14:37 | PROVIDERS: ATTEND Family Medicine | DX: E11.51 Type 2 diabetes mellitus with diabetic peripheral angiopathy without gangrene (principal); E11.622 Type 2 diabetes mellitus with other skin ulcer; L97.323 Non-pressure chronic ulcer of left ankle with necrosis of muscle | CPT/HCPCS: G0277 ==

== ENCOUNTER 2018-10-31 11:12 | Outpatient (CLI) | payer MEDICARE, BC ==
[2018-10-31] MEDS ORDERED: Sodium Chloride 0.9% 15 ML NEB ONE (18:00)
== END 2018-10-31 11:13 | disposition home or self-care (01) ==
LOC: HBO 11:12
PROVIDERS: ATTEND Family Medicine
DX: E11.622 Type 2 diabetes mellitus with other skin ulcer (principal); E11.51 Type 2 diabetes mellitus with diabetic peripheral angiopathy without gangrene; L97.323 Non-pressure chronic ulcer of left ankle with necrosis of muscle
CPT/HCPCS: A4218

== ENCOUNTER 2018-11-04 11:04 | Outpatient (CLI) | payer MEDICARE, BC ==
--- NOTE | 2018-11-04 13:29 | PRG ---
DATE OF SERVICE: 11/04/2018 HISTORY: Ms. Kalie Greenwood is a very pleasant 83-year-old accompanied by her daughter and [id number]-okh, who presents to the [facility]ound Center for evaluation of an ulceration of the left posterior heel over the Achilles tendon. The patient is currently receiving treatment with EpiFix in conjunction with hyperbaric oxygen therapy. The patient has undergone percutaneous revascularization of the left lower extremity x2 by Dr. Alejo. On 10/07/2018, the Achilles tendon was debrided at bedside by Dr. Ori Mata. PHYSICAL EXAMINATION: VITAL SIGNS: Temperature 97.6, pulse 72, respirations 22, blood pressure 111/54. Accu-Chek 174. EXTREMITIES: An ulceration of the left posterior heel is present, which measures approximately 7.0 x 2.0 cm. The dimensions of the wound at the time of the patient's visit on 10/28/2018 were approximately 7.4 x 2.5 cm. Granulation tissue is visible within the wound margins. Moderate green drainage is associated with the wound. No cellulitis of the left ankle is appreciated. No maceration of the skin of the periwound is noted. No significant edema of the left foot is present on exam today. After copious irrigation of the wound bed with normal saline. EpiFix was applied to the wound bed followed by Adaptic, secured with Steri-Strips and Mastisol and ABD and the 3M Coban 2 Layer Compression System. ASSESSMENT AND PLAN: 1. Ulceration of left posterior heel. EpiFix was applied to the wound bed of the ulceration today in conjunction with the 3M Coban 2 Layer Compression System without tension. I will see Ms. Greenwood again in 1 week. The patient will continue hyperbaric oxygen therapy. The patient was recently seen by Dr. Alejo, who stated that no further attempts at percutaneous revascularization were warranted. 2. Diabetes mellitus. The patient's Accu-Chek in clinic today is 174. The patient has been reminded that for optimal wound healing her blood glucoses should remain below 150. 3. Hypertension. 4. Atrial fibrillation, status post ablation. 5. Coronary artery disease. 6. Chronic obstructive pulmonary disease. Job ID: [id number]
== END 2018-11-04 11:05 | disposition home or self-care (01) ==
LOC: HBO 11:04
PROVIDERS: ATTEND Family Medicine
DX: E11.622 Type 2 diabetes mellitus with other skin ulcer (principal); L97.429 Non-pressure chronic ulcer of left heel and midfoot with unspecified severity; I10 Essential (primary) hypertension; I48.91 Unspecified atrial fibrillation; I25.10 Atherosclerotic heart disease of native coronary artery without angina pectoris; J44.9 Chronic obstructive pulmonary disease, unspecified
CPT/HCPCS: A4218; Q4186

== ENCOUNTER 2018-11-05 10:53 | Outpatient (CLI) | payer MEDICARE, BC | END 2018-11-05 10:54 | disposition home or self-care (01) | LOC: HBO 10:53 | PROVIDERS: ATTEND Family Medicine | DX: E11.51 Type 2 diabetes mellitus with diabetic peripheral angiopathy without gangrene (principal); L97.323 Non-pressure chronic ulcer of left ankle with necrosis of muscle | CPT/HCPCS: G0277 ==

== ENCOUNTER 2018-11-07 10:28 | Outpatient (CLI) | payer MEDICARE, BC | END 2018-11-07 10:29 | disposition home or self-care (01) | LOC: HBO 10:28 | PROVIDERS: ATTEND Family Medicine | DX: E11.622 Type 2 diabetes mellitus with other skin ulcer (principal); L97.323 Non-pressure chronic ulcer of left ankle with necrosis of muscle; E11.51 Type 2 diabetes mellitus with diabetic peripheral angiopathy without gangrene | CPT/HCPCS: 29581 ==

== ENCOUNTER 2018-11-11 11:21 | Outpatient (CLI) | payer MEDICARE, BC ==
--- NOTE | 2018-11-11 16:48 | PRG ---
DATE OF SERVICE: 11/11/2018 HISTORY: Ms. Kalie Greenwood is a very pleasant 83-year-old, accompanied by her [id number], who presents to the [facility] Center for evaluation of an ulceration of the left posterior heel over the Achilles tendon. The patient is presently receiving treatment with EpiFix in conjunction with hyperbaric oxygen therapy. The patient has undergone percutaneous revascularization of the left lower extremity by Dr. Alejo on 2 occasions. On 10/07/2018, the Achilles tendon was debrided at bedside by Dr. Ori Mata. PHYSICAL EXAMINATION: VITAL SIGNS: Temperature 97.9, pulse 70, respirations 22, blood pressure 116/55. Accu-Chek 154. EXTREMITIES: An ulceration of the left posterior heel is present, which measures approximately 7.0 x 1.4 cm. The dimensions of the wound at the time of the patient's visit on 11/04/2018 were approximately 7.0 x 2.0 cm. Granulation tissue is visible within the wound margins. No purulent drainage is associated with the wound. No erythema of the skin surrounding the wound is present. No maceration of the skin of the periwound is noted. No significant edema of the left foot is present on exam today. After copious irrigation of the wound bed with normal saline, EpiFix was applied to the wound bed followed by Adaptic, secured with Steri-Strips and Mastisol, an ABD, and the 3M Coban 2 Layer Compression System applied without tension. ASSESSMENT AND PLAN: 1. Ulceration of left posterior heel. EpiFix was applied to the wound bed of the ulceration today in conjunction with the 3M Coban 2 Layer Compression System without tension. The patient will continue hyperbaric oxygen therapy. I will see Ms. Greenwood again in 2 weeks. The patient was recently seen by Dr. Alejo who stated that no further attempts at percutaneous revascularization were warranted. 2. Diabetes mellitus. The patient's Accu-Chek in clinic today is 154. The patient has been reminded that for optimal wound healing her blood glucoses should remain below 150. 3. Hypertension. 4. Atrial fibrillation, status post ablation. 5. Coronary artery disease. 6. Chronic obstructive pulmonary disease. Job ID: [id number]
== END 2018-11-11 11:22 | disposition home or self-care (01) ==
LOC: HBO 11:21
PROVIDERS: ATTEND Family Medicine
DX: E11.622 Type 2 diabetes mellitus with other skin ulcer (principal); L97.429 Non-pressure chronic ulcer of left heel and midfoot with unspecified severity; I10 Essential (primary) hypertension; I48.91 Unspecified atrial fibrillation; I25.10 Atherosclerotic heart disease of native coronary artery without angina pectoris; J44.9 Chronic obstructive pulmonary disease, unspecified; L97.323 Non-pressure chronic ulcer of left ankle with necrosis of muscle; E11.51 Type 2 diabetes mellitus with diabetic peripheral angiopathy without gangrene
CPT/HCPCS: 15275; G0277; Q4186

== ENCOUNTER 2018-11-13 10:38 | Outpatient (CLI) | payer MEDICARE, BC | END 2018-11-13 10:39 | disposition home or self-care (01) | LOC: HBO 10:38 | PROVIDERS: ATTEND Family Medicine | DX: E11.622 Type 2 diabetes mellitus with other skin ulcer (principal); L97.323 Non-pressure chronic ulcer of left ankle with necrosis of muscle; E11.51 Type 2 diabetes mellitus with diabetic peripheral angiopathy without gangrene | CPT/HCPCS: G0277 ==

== ENCOUNTER 2018-11-14 14:04 | Outpatient (CLI) | payer MEDICARE, BC | END 2018-11-14 14:05 | disposition home or self-care (01) | LOC: HBO 14:04 | PROVIDERS: ATTEND Family Medicine | DX: E11.622 Type 2 diabetes mellitus with other skin ulcer (principal); L97.323 Non-pressure chronic ulcer of left ankle with necrosis of muscle; E11.51 Type 2 diabetes mellitus with diabetic peripheral angiopathy without gangrene | CPT/HCPCS: G0277 ==

== ENCOUNTER 2018-11-25 11:06 | Outpatient (CLI) | payer MEDICARE, BC ==
--- NOTE | 2018-11-25 15:30 | PRG ---
DATE OF SERVICE: 11/25/2018 HISTORY: Ms. Kalie Greenwood is a very pleasant 83-year-old, accompanied by her [id number], who presents to the [facility]ound Center for evaluation of an ulceration of the left posterior heel over the Achilles tendon. The patient is currently receiving treatment with EpiFix in conjunction with hyperbaric oxygen therapy. The patient has undergone percutaneous revascularization of the left lower extremity by Dr. Alejo on 2 occasions. On 10/07/2018, the Achilles tendon was debrided at bedside by Dr. Ori Mata. PHYSICAL EXAMINATION: VITAL SIGNS: Temperature 97.4, pulse 73, respirations 18, blood pressure 114/56. Accu-Chek 152. EXTREMITIES: An ulceration of the left posterior heel is present, which measures approximately 7.0 x 1.1 cm. The dimensions of the wound at the time of the patient's visit on 11/11/2018 were approximately 7.0 x 1.4 cm. Granulation tissue is present within the wound margins. No purulent drainage is associated with the wound. No erythema of the skin surrounding the wound is present. No maceration of the skin of the periwound is noted. No significant edema of the left foot is present on exam today. After copious irrigation of the wound bed with normal saline, EpiFix was applied to the wound bed followed by Adaptic, secured with Steri-Strips and Mastisol and ABD and the 3M Coban 2 Layer Compression System applied without tension. ASSESSMENT AND PLAN: 1. Ulceration of left posterior heel, EpiFix was applied to the wound bed of the ulceration today in conjunction with the 3M Coban 2 Layer Compression System without tension. The patient will continue hyperbaric oxygen therapy. I will see Ms. Greenwood again in 1 week. The patient was recently seen by Dr. Alejo who stated that no further attempts at percutaneous revascularization were warranted. 2. Diabetes mellitus. The patient's Accu-Chek in the clinic today is 152. The patient has been reminded that for optimal wound healing her blood glucoses should remain below 150. 3. Hypertension. 4. Atrial fibrillation, status post ablation. 5. Coronary artery disease. 6. Chronic obstructive pulmonary disease. Job ID: [id number]
[2018-11-25] MEDS ORDERED: Sodium Chloride 0.9% 15 ML NEB ONE (18:00)
== END 2018-11-25 11:07 | disposition home or self-care (01) ==
LOC: HBO 11:06
PROVIDERS: ATTEND Family Medicine
DX: E11.621 Type 2 diabetes mellitus with foot ulcer (principal); L97.429 Non-pressure chronic ulcer of left heel and midfoot with unspecified severity; I10 Essential (primary) hypertension; I48.91 Unspecified atrial fibrillation; I25.10 Atherosclerotic heart disease of native coronary artery without angina pectoris; J44.9 Chronic obstructive pulmonary disease, unspecified
CPT/HCPCS: 15275; 97139; G0277; Q4186; A4218

== ENCOUNTER 2018-11-26 14:17 | Outpatient (CLI) | payer MEDICARE, BC | END 2018-11-26 14:18 | disposition home or self-care (01) | LOC: HBO 14:17 | PROVIDERS: ATTEND Family Medicine | DX: E11.51 Type 2 diabetes mellitus with diabetic peripheral angiopathy without gangrene (principal); E11.622 Type 2 diabetes mellitus with other skin ulcer; L97.323 Non-pressure chronic ulcer of left ankle with necrosis of muscle | CPT/HCPCS: G0277 ==

== ENCOUNTER 2018-11-27 15:21 | Outpatient (CLI) | payer MEDICARE, BC | END 2018-11-27 15:22 | disposition home or self-care (01) | LOC: HBO 15:21 | PROVIDERS: ATTEND Family Medicine | DX: E11.51 Type 2 diabetes mellitus with diabetic peripheral angiopathy without gangrene (principal); L97.323 Non-pressure chronic ulcer of left ankle with necrosis of muscle | CPT/HCPCS: G0277 ==

== ENCOUNTER 2018-11-28 10:22 | Outpatient (CLI) | payer MEDICARE, BC | END 2018-11-28 10:23 | disposition home or self-care (01) | LOC: HBO 10:22 | PROVIDERS: ATTEND Family Medicine | DX: E11.51 Type 2 diabetes mellitus with diabetic peripheral angiopathy without gangrene (principal); L97.323 Non-pressure chronic ulcer of left ankle with necrosis of muscle | CPT/HCPCS: G0277 ==

== ENCOUNTER 2018-12-09 10:38 | Outpatient (CLI) | payer MEDICARE, BC ==
--- NOTE | 2018-12-09 13:57 | PRG ---
DATE OF SERVICE: 12/09/2018 HISTORY: Ms. Kalie Greenwood is a very pleasant 83-year-old, who presents to the Wound Center for evaluation of an ulceration of the left posterior heel over the Achilles tendon. The patient is presently receiving treatment with EpiFix in conjunction with hyperbaric oxygen therapy. The patient has undergone percutaneous revascularization of the left lower extremity by Dr. Alejo on two occasions. On 10/07/2018, the Achilles tendon was debrided at bedside by Dr. Ori Mata. PHYSICAL EXAMINATION: VITAL SIGNS: Temperature 97.9, pulse 72, respirations 22, blood pressure 117/55. Accu-Chek 131. EXTREMITIES: An ulceration of the left posterior heel is present, which measures approximately 6.4 x 1.8 cm. The dimensions of the wound at the time of the patient's visit on 11/25/2018 were approximately 7.0 x 1.1 cm. Granulation tissue is present within the wound margins. No purulent drainage is associated with the wound. No erythema of the skin surrounding the wound is present. No maceration of the skin of the periwound is noted. No significant edema of the left foot is present on exam today. After copious irrigation of the wound bed with normal saline, EpiFix was applied to the wound bed followed by Adaptic, secured with Steri-Strips and Mastisol and ABD, Webril and the 3M Coban 2 Layer Compression System applied without tension. ASSESSMENT AND PLAN: 1. Ulceration of left posterior heel, EpiFix was applied to the wound bed of the ulceration today in conjunction with the 3M Coban 2 Layer Compression System without tension. The patient will continue hyperbaric oxygen therapy. I will see Ms. Greenwood again in 1 week. The patient has been seen by Dr. Alejo, who stated that no further attempts at percutaneous revascularization were warranted. 2. Diabetes mellitus. The patient's Accu-Chek in clinic today is 131. The patient has been reminded that for optimal wound healing her blood glucoses should remain below 150. 3. Hypertension. 4. Atrial fibrillation, status post ablation. 5. Coronary artery disease. 6. Chronic obstructive pulmonary disease. Job ID: [id number]
[2018-12-09] MEDS ORDERED: Sodium Chloride 0.9% 15 ML NEB ONE (18:00)
== END 2018-12-09 10:39 | disposition home or self-care (01) ==
LOC: WCC 10:38
PROVIDERS: ATTEND Family Medicine
DX: E11.621 Type 2 diabetes mellitus with foot ulcer (principal); L97.429 Non-pressure chronic ulcer of left heel and midfoot with unspecified severity; I48.91 Unspecified atrial fibrillation; I25.10 Atherosclerotic heart disease of native coronary artery without angina pectoris; J44.9 Chronic obstructive pulmonary disease, unspecified; I10 Essential (primary) hypertension
CPT/HCPCS: A4218; Q4186

== ENCOUNTER 2018-12-10 15:53 | Outpatient (CLI) | payer MEDICARE, BC | END 2018-12-10 15:54 | disposition home or self-care (01) | LOC: WCC 15:53 | PROVIDERS: ATTEND Family Medicine | DX: E11.622 Type 2 diabetes mellitus with other skin ulcer (principal); E11.51 Type 2 diabetes mellitus with diabetic peripheral angiopathy without gangrene; L97.323 Non-pressure chronic ulcer of left ankle with necrosis of muscle | CPT/HCPCS: G0277 ×2 ==

== ENCOUNTER 2018-12-11 11:01 | Outpatient (CLI) | payer MEDICARE, BC | END 2018-12-11 11:02 | disposition home or self-care (01) | LOC: WCC 11:01 | PROVIDERS: ATTEND Family Medicine | DX: E11.622 Type 2 diabetes mellitus with other skin ulcer (principal); L97.323 Non-pressure chronic ulcer of left ankle with necrosis of muscle; E11.51 Type 2 diabetes mellitus with diabetic peripheral angiopathy without gangrene | CPT/HCPCS: G0277 ==

== ENCOUNTER 2018-12-12 16:03 | Outpatient (CLI) | payer MEDICARE, BC | END 2018-12-12 16:04 | disposition home or self-care (01) | LOC: WCC 16:03 | PROVIDERS: ATTEND Family Medicine | DX: E11.51 Type 2 diabetes mellitus with diabetic peripheral angiopathy without gangrene (principal); I73.9 Peripheral vascular disease, unspecified; L97.323 Non-pressure chronic ulcer of left ankle with necrosis of muscle ==

== ENCOUNTER 2018-12-16 09:49 | Outpatient (CLI) | payer MEDICARE, BC ==
[2018-12-16] MEDS ORDERED: Sodium Chloride 0.9% 15 ML NEB ONE (18:00)
--- NOTE | 2018-12-17 10:44 | PRG ---
DATE OF SERVICE: 12/16/2018 HISTORY: Ms. Kalie Greenwood is a very pleasant 83-year-old, who presents to the Wound Center for evaluation of an ulceration of the left posterior heel over the Achilles tendon. The patient has completed a course of treatment with EpiFix. She continues to receive hyperbaric oxygen therapy. The patient has undergone percutaneous revascularization of the left lower extremity by Dr. Alejo on 2 occasions. On 10/07/2018, the Achilles tendon was debrided at bedside by Dr. Ori Mata. PHYSICAL EXAMINATION: VITAL SIGNS: Temperature 97.4, pulse 72, respirations 22, and blood pressure 123/62. Accu-Chek 131. EXTREMITIES: An ulceration of the left posterior heel is present, which measures approximately 6.0 x 1.6 cm. The dimensions of the wound at the time of the patient's visit on 12/09/2018 were approximately 6.4 x 1.8 cm. Granulation tissue is present within the wound margins. No purulent drainage is associated with the wound. No erythema of the skin surrounding the wound is present. No maceration of the skin of the periwound is noted. No significant edema of the left foot is present on exam today. After copious irrigation of the wound bed with normal saline, SilvaSorb Gel sheet was applied to the wound bed followed by Adaptic and the 3M Coban 2 Layer Compression System applied without tension. ASSESSMENT AND PLAN: 1. Ulceration of left posterior heel. The patient has completed a course of treatment with EpiFix. The patient will continue hyperbaric oxygen therapy. I will see Ms. Greenwood again in 1 week. The patient has been seen by Dr. Alejo, who stated that no further attempts at percutaneous revascularization were warranted. The 3M Coban 2 Layer Compression System will be applied to the ulceration of the left posterior heel without tension. Webril will be utilized as needed at the time of dressing changes. 2. Diabetes mellitus. The patient's Accu-Chek in clinic today is 131. The patient has been reminded that for optimal wound healing, her blood glucoses should remain below 150. 3. Hypertension. 4. Atrial fibrillation, status post ablation. 5. Coronary artery disease. 6. Chronic obstructive pulmonary disease. Job ID: [id number]
== END 2018-12-16 09:50 | disposition home or self-care (01) ==
LOC: WCC 09:49 → HBO 09:50
PROVIDERS: ATTEND Family Medicine
DX: E11.621 Type 2 diabetes mellitus with foot ulcer (principal); L97.429 Non-pressure chronic ulcer of left heel and midfoot with unspecified severity; I10 Essential (primary) hypertension; I48.91 Unspecified atrial fibrillation; I25.10 Atherosclerotic heart disease of native coronary artery without angina pectoris; J44.9 Chronic obstructive pulmonary disease, unspecified
CPT/HCPCS: A4218; G0277

== ENCOUNTER 2018-12-17 13:26 | Outpatient (CLI) | payer MEDICARE, BC | END 2018-12-17 13:27 | disposition home or self-care (01) | LOC: WCC 13:26 | PROVIDERS: ATTEND Family Medicine | DX: E11.622 Type 2 diabetes mellitus with other skin ulcer (principal); L97.323 Non-pressure chronic ulcer of left ankle with necrosis of muscle; E11.51 Type 2 diabetes mellitus with diabetic peripheral angiopathy without gangrene | CPT/HCPCS: G0277 ==

== ENCOUNTER 2018-12-18 10:45 | Outpatient (CLI) | payer MEDICARE, BC | END 2018-12-18 10:46 | disposition home or self-care (01) | LOC: WCC 10:45 | PROVIDERS: ATTEND Family Medicine | DX: E11.622 Type 2 diabetes mellitus with other skin ulcer (principal); L97.323 Non-pressure chronic ulcer of left ankle with necrosis of muscle; E11.51 Type 2 diabetes mellitus with diabetic peripheral angiopathy without gangrene | CPT/HCPCS: G0277 ==

== ENCOUNTER 2018-12-19 11:48 | Outpatient (CLI) | payer MEDICARE, BC | END 2018-12-19 11:49 | disposition home or self-care (01) | LOC: WCC 11:48 | PROVIDERS: ATTEND Family Medicine | DX: E11.622 Type 2 diabetes mellitus with other skin ulcer (principal); L97.323 Non-pressure chronic ulcer of left ankle with necrosis of muscle; E11.51 Type 2 diabetes mellitus with diabetic peripheral angiopathy without gangrene | CPT/HCPCS: G0277 ==

== ENCOUNTER 2018-12-23 11:50 | Outpatient (CLI) | payer MEDICARE, BC ==
--- NOTE | 2018-12-23 14:36 | PRG ---
DATE OF SERVICE: 12/23/2018 HISTORY: Ms. Kalie Greenwood is a very pleasant 83-year-old, accompanied by her [id number], who presents to the Wound Center for evaluation of an ulceration of the left posterior heel over the Achilles tendon. The patient has completed a course of treatment with EpiFix. She continues to receive hyperbaric oxygen therapy. The patient has undergone percutaneous revascularization of the left lower extremity by Dr. Alejo on 2 occasions. On 10/07/2018, the Achilles tendon was debrided at bedside by Dr. Ori Mata. PHYSICAL EXAMINATION: VITAL SIGNS: Temperature 97.7, pulse 70, respirations 22, blood pressure 105/51. Accu-Chek 154. EXTREMITIES: The ulceration of the left posterior heel has divided into multiple wounds, the largest wound measures approximately 1.0 x 3.0 cm. Granulation tissue is present within the wound margins. No purulent drainage is associated with the wound. No erythema of the skin surrounding the wound is present. No maceration of the skin of the periwound is noted. No significant edema of the left foot is present on exam today. The dimensions of the left posterior heel ulceration at the time of the patient's visit on 12/16/2018, were approximately 6.0 x 1.6 cm. ASSESSMENT AND PLAN: 1. Ulceration of left posterior heel. The patient has completed a course of treatment with EpiFix. The patient will continue hyperbaric oxygen therapy. SilvaSorb gel sheet followed by Adaptic and 3M Coban 2 Layer Compression System without tension is to be applied to the ulcerations of the left posterior heel two times per week after cleansing and irrigation with the assistance of Home Health. I will see Ms. Greenwood again in 2 weeks. The patient was recently seen by Dr. Alejo, who stated that no further attempts at percutaneous revascularization were warranted. 2. Diabetes mellitus. The patient's Accu-Chek in clinic today is 154. The patient has been reminded that for optimal wound healing, her blood glucoses should remain below 150. 3. Hypertension. 4. Atrial fibrillation, status post ablation. 5. Coronary artery disease. 6. Chronic obstructive pulmonary disease. Job ID: [id number]
[2018-12-23] MEDS ORDERED: Sodium Chloride 0.9% 15 ML NEB ONE (17:38)
== END 2018-12-23 11:51 | disposition home or self-care (01) ==
LOC: WCC 11:50
PROVIDERS: ATTEND Family Medicine
DX: E11.621 Type 2 diabetes mellitus with foot ulcer (principal); L97.323 Non-pressure chronic ulcer of left ankle with necrosis of muscle; L97.429 Non-pressure chronic ulcer of left heel and midfoot with unspecified severity; I10 Essential (primary) hypertension; I48.91 Unspecified atrial fibrillation; I25.10 Atherosclerotic heart disease of native coronary artery without angina pectoris; J44.9 Chronic obstructive pulmonary disease, unspecified
CPT/HCPCS: A4218; G0277

== ENCOUNTER 2018-12-24 11:21 | Outpatient (CLI) | payer MEDICARE, BC | END 2018-12-24 11:22 | disposition home or self-care (01) | LOC: WCC 11:21 | PROVIDERS: ATTEND Family Medicine | DX: E11.622 Type 2 diabetes mellitus with other skin ulcer (principal); L97.323 Non-pressure chronic ulcer of left ankle with necrosis of muscle; E11.51 Type 2 diabetes mellitus with diabetic peripheral angiopathy without gangrene | CPT/HCPCS: G0277 ==

== ENCOUNTER 2018-12-25 10:37 | Outpatient (CLI) | payer MEDICARE, BC | END 2018-12-25 10:38 | disposition home or self-care (01) | LOC: WCC 10:37 | PROVIDERS: ATTEND Family Medicine | DX: E11.622 Type 2 diabetes mellitus with other skin ulcer (principal); L97.323 Non-pressure chronic ulcer of left ankle with necrosis of muscle; E11.51 Type 2 diabetes mellitus with diabetic peripheral angiopathy without gangrene | CPT/HCPCS: G0277 ==

== ENCOUNTER 2019-01-08 08:45 | Outpatient (CLI) | payer MEDICARE, BC ==
[2019-01-08] MEDS ORDERED: Sodium Chloride 0.9% 15 ML NEB ONE (09:00)
[2019-01-08] MEDS ORDERED: Lidocaine 2% PF 100 mg/5 ml Syringe ONE (09:00)
--- NOTE | 2019-01-08 10:00 | PRG ---
DATE OF SERVICE: 01/08/2019 HISTORY: Ms. Kalie Greenwood is a very pleasant 83-year-old, accompanied by her daughter, who presents to the Wound Center for evaluation of an ulceration of the left posterior heel over the Achilles tendon. The patient has completed a course of treatment with EpiFix. She has also completed a course of hyperbaric oxygen therapy. The patient has undergone percutaneous revascularization of the left lower extremity by Dr. Alejo on 2 occasions. On 10/07/2018, the Achilles tendon was debrided at bedside by Dr. Ori Mata. PHYSICAL EXAMINATION: VITAL SIGNS: Temperature 97.8, pulse 72, respirations 22, blood pressure 138/59. Accu-Chek 151. EXTREMITIES: The ulceration of the left posterior heel has divided into multiple wounds within an area, which measures approximately 5.5 x 1.1 cm. Granulation tissue is present within the wound margins of each wound. No purulent drainage is associated with any of the wounds. No erythema of the skin surrounding any of the wounds is present. No maceration of the skin of the periwound of any of the wounds is noted. No significant edema of the left foot is present on exam today. ASSESSMENT AND PLAN: 1. Ulceration of left posterior heel. The patient has completed courses of therapy with EpiFix and hyperbaric oxygen therapy. SilvaSorb gel sheet followed by an ABD and the 3M Coban 2-Layer Compression System without tension will be applied to the ulceration today. Dressing changes are to be performed 2 times per week after cleansing and irrigation with the assistance of Home Health. I will see Ms. Greenwood again in 2 weeks. 2. Diabetes mellitus. The patient's Accu-Chek in clinic today is 151. The patient has been reminded that for optimal wound healing, her blood glucoses should remain below 150. 3. Hypertension. 4. Atrial fibrillation, status post ablation. 5. Coronary artery disease. 6. Chronic obstructive pulmonary disease. Job ID: [id number]
== END 2019-01-08 08:46 | disposition home or self-care (01) ==
LOC: WCC 08:45
PROVIDERS: ATTEND Family Medicine
DX: E11.621 Type 2 diabetes mellitus with foot ulcer (principal); L97.429 Non-pressure chronic ulcer of left heel and midfoot with unspecified severity; I10 Essential (primary) hypertension; I48.91 Unspecified atrial fibrillation; I25.10 Atherosclerotic heart disease of native coronary artery without angina pectoris; J44.9 Chronic obstructive pulmonary disease, unspecified
CPT/HCPCS: 29581; 36416; A4218; J2001

== ENCOUNTER 2019-01-22 08:21 | Outpatient (CLI) | payer MEDICARE, BC ==
--- NOTE | 2019-01-22 10:09 | PRG ---
DATE OF SERVICE: 01/22/2019 HISTORY: Ms. Kalie Greenwood is a very pleasant 83-year-old, accompanied by her daughter, who presents to the [facility]ound Center for evaluation of an ulceration of the left posterior heel over the Achilles tendon. The patient has completed a course of treatment with EpiFix. She has also completed a course of hyperbaric oxygen therapy. The patient has undergone percutaneous revascularization of the left lower extremity by Dr. Alejo on 2 occasions. On 10/07/2018, the Achilles tendon was debrided at bedside by Dr. Ori Mata. PHYSICAL EXAMINATION: VITAL SIGNS: Temperature 98.2, pulse 70, respirations 22, and blood pressure 136/60. EXTREMITIES: The ulceration of the left posterior heel has divided into multiple wounds within an area, which measures approximately 5.0 x 2.5 cm. Granulation tissue is present within the margins of each wound. No purulent drainage is associated with any of the wounds. No erythema of the skin surrounding any of the wounds is present. No maceration of the skin of the periwound of any of the wounds is noted. No significant edema of the left foot is present on exam today. ASSESSMENT AND PLAN: 1. Ulceration of left posterior heel. The patient has completed courses of therapy with EpiFix and hyperbaric oxygen therapy. SilvaSorb gel sheet, followed by an ABD and the 3M Coban 2-Layer Compression System without tension will be applied to the ulceration today. Dressing changes are to be performed 2 times per week after cleansing and irrigation with the assistance of Home Health. I will see Ms. Greenwood again in 2 weeks. 2. Diabetes mellitus. Accu-Cheks will be obtained at the time of the patient's clinic visits. The patient has been reminded that for optimal wound healing her blood glucoses should remain below 150. 3. Hypertension. 4. Atrial fibrillation, status post ablation. 5. Coronary artery disease. 6. Chronic obstructive pulmonary disease. Job ID: [id number]
[2019-01-22] MEDS ORDERED: Lidocaine 2% PF 100 mg/5 ml Syringe ONE (18:00)
[2019-01-22] MEDS ORDERED: Sodium Chloride 0.9% 15 ML NEB ONE (18:00)
== END 2019-01-22 08:22 | disposition home or self-care (01) ==
LOC: WCC 08:21
PROVIDERS: ATTEND Family Medicine
DX: E11.621 Type 2 diabetes mellitus with foot ulcer (principal); L97.429 Non-pressure chronic ulcer of left heel and midfoot with unspecified severity; I10 Essential (primary) hypertension; I25.10 Atherosclerotic heart disease of native coronary artery without angina pectoris; I48.91 Unspecified atrial fibrillation; J44.9 Chronic obstructive pulmonary disease, unspecified
CPT/HCPCS: 29581; 36416; A4218; J2001

== ENCOUNTER 2019-02-05 08:06 | Outpatient (CLI) | payer MEDICARE, BC ==
--- NOTE | 2019-02-05 10:12 | PRG ---
DATE OF SERVICE: 02/05/2019 HISTORY: Ms. Kalie Greenwood is a very pleasant 83-year-old, accompanied by her daughter, who presents to the Wound Center for evaluation of an ulceration of the left posterior heel over the Achilles tendon. The patient has completed a course of treatment with EpiFix. She has also completed a course of hyperbaric oxygen therapy. The patient has undergone percutaneous revascularization of the left lower extremity by Dr. Alejo on 2 occasions. On 10/07/2018, the Achilles tendon was debrided at bedside by Dr. Ori Mata. PHYSICAL EXAMINATION: VITAL SIGNS: Temperature 98.5, pulse 74, respirations 22, blood pressure 117/58. Accu-Chek 134. EXTREMITIES: The ulceration of the left posterior heel measures approximately 4.0 x 1.7 cm. The ulceration is covered in its entirety by dry stable eschar. No drainage is associated with the wound. No erythema of the skin surrounding the wound is present. No maceration of the skin of the periwound is noted. No significant edema of the left foot is present on exam today. ASSESSMENT AND PLAN: 1. Ulceration of left posterior heel. The patient has completed courses of treatment with EpiFix and hyperbaric oxygen therapy. SilvaSorb gel sheet followed by Webril and Coban will be applied to the ulceration today. Dressing changes are to be performed 2 times per week after cleansing and irrigation with the assistance of Home Health. I will see Ms. Greenwood again in 2 weeks. 2. Diabetes mellitus. The patient's Accu-Chek in clinic today is 134. The patient has been reminded that for optimal wound healing, her blood glucoses should remain below 150. 3. Hypertension. 4. Atrial fibrillation, status post ablation. 5. Coronary artery disease. 6. Chronic obstructive pulmonary disease. 7. Multiple blisters of right and left lower extremities. The patient has been placed on a course of Keflex 500 mg, #20, one p.o. b.i.d. x10 days after fluid from one of the unroofed blisters was sent for aerobic and anaerobic cultures. Job ID: [id number]
[2019-02-05] MEDS ORDERED: Sodium Chloride 0.9% 15 ML NEB ONE (16:15)
== END 2019-02-05 08:07 | disposition home or self-care (01) ==
LOC: WCC 08:06
PROVIDERS: ATTEND Family Medicine
DX: E11.621 Type 2 diabetes mellitus with foot ulcer (principal); L97.429 Non-pressure chronic ulcer of left heel and midfoot with unspecified severity; S80.822D Blister (nonthermal), left lower leg, subsequent encounter; S80.821D Blister (nonthermal), right lower leg, subsequent encounter; I10 Essential (primary) hypertension; I48.91 Unspecified atrial fibrillation; J44.9 Chronic obstructive pulmonary disease, unspecified
CPT/HCPCS: 87070; 87077; 87186; 87205; 97602; A4218

== ENCOUNTER 2019-02-19 11:17 | Outpatient (CLI) | payer MEDICARE, BC ==
--- NOTE | 2019-02-19 10:30 | PRG ---
DATE OF SERVICE: 02/17/2019 HISTORY: Ms. Kalie Greenwood is a very pleasant 83-year-old, accompanied by her daughter, who presents to the Wound Center for evaluation of an ulceration of the left posterior heel over the Achilles tendon. The patient has completed a course of treatment with EpiFix. She has also completed a course of hyperbaric oxygen therapy. The patient has undergone percutaneous revascularization of the left lower extremity by Dr. Alejo on 2 occasions. On 10/07/2018, the Achilles tendon was debrided at bedside by Dr. Ori Mata. PHYSICAL EXAMINATION: VITAL SIGNS: Temperature 98.0, pulse 71, respirations 20, and blood pressure 118/55. Accu-Chek 155. EXTREMITIES: Four open areas, small, present over an area of the left posterior heel, which measures approximately 6.2 x 1.2 cm. No purulent drainage is associated with any of the small open areas. No cellulitis of the left foot or ankle is appreciated. No maceration of the skin of the left foot or ankle is present. No significant edema of the left foot is present on exam today. ASSESSMENT AND PLAN: 1. Ulceration of left posterior heel. The patient has completed courses of treatment with EpiFix and hyperbaric oxygen therapy. SilvaSorb gel sheet followed by Webril and Coban will be applied to the small open areas over the left posterior heel today. Dressing changes are to be performed 3 times per week after cleansing and irrigation with the assistance of Home Health. I will see Ms. Greenwood again in 2 weeks. 2. Blister of the left lower leg. Cultures of the fluid contained within a blister obtained at the time of the patient's last visit revealed the growth of methicillin-resistant Staphylococcus aureus and Enterococcus faecalis. The patient has been given a prescription for Bactrim DS #20 one p.o. b.i.d. x10 days. The patient will be treated with Augmentin at the time of her followup visit in 2 weeks. The enterococcus was found to be sensitive to amoxicillin while the methicillin-resistant Staphylococcus aureus is sensitive to Bactrim. 3. Diabetes mellitus. The patient's Accu-Chek in clinic today is 155. The patient has been reminded that for optimal wound healing, her blood glucoses should remain below 150. 4. Hypertension. 5. Atrial fibrillation, status post ablation. 6. Coronary artery disease. 7. Chronic obstructive pulmonary disease. Job ID: [id number]
[~2019-02-19 11:17] MED LIST changes: +Lidocaine 2% PF 100 mg/5 ml Syringe ONE
== END 2019-02-19 11:18 | disposition home or self-care (01) ==
LOC: WCC 11:17
PROVIDERS: ATTEND Family Medicine
DX: E11.621 Type 2 diabetes mellitus with foot ulcer (principal); L97.429 Non-pressure chronic ulcer of left heel and midfoot with unspecified severity; S80.822D Blister (nonthermal), left lower leg, subsequent encounter; I10 Essential (primary) hypertension; I48.91 Unspecified atrial fibrillation; I25.10 Atherosclerotic heart disease of native coronary artery without angina pectoris; J44.9 Chronic obstructive pulmonary disease, unspecified
CPT/HCPCS: 36416; A4218; J2001

== ENCOUNTER 2019-02-21 11:50 | Outpatient (CLI) | payer MEDICARE, BC ==
--- NOTE | 2019-02-21 12:29 | RAD ---
EXAM: Chest 2 views: HISTORY: Chest pain COMPARISON: 09/21/2016 FINDINGS: There is an enlarged but stable cardiomediastinal silhouette. The pacemaker is unchanged in position . There is a stable masslike region in the right thorax which likely represents scarring The bones are unremarkable. IMPRESSION: Cardiomegaly without evidence of acute cardiopulmonary disease
--- NOTE | 2019-02-21 12:31 | RAD ---
EXAM: Right Rib series HISTORY: Rib pain COMPARISON: None FINDINGS: Multiple views of the right ribs shows possible lateral fractures of the fourth, fifth, and sixth rib s. No underlying pleural thickening or pneumothorax are seen. IMPRESSION: Possible right fourth through sixth rib fractures
== END 2019-02-21 11:51 | disposition home or self-care (01) ==
LOC: BICRAD 11:50
PROVIDERS: ATTEND Family Medicine
DX: R07.89 Other chest pain (principal); I51.7 Cardiomegaly
CPT/HCPCS: 71046

== ENCOUNTER 2019-03-10 14:44 | Outpatient (CLI) | payer MEDICARE, BC ==
--- NOTE | 2019-03-10 10:37 | PRG ---
DATE OF SERVICE: 03/10/2019 HISTORY: Ms. Kalie Greenwood is a very pleasant 83-year-old, accompanied by her daughter, who [facility] of an ulceration of the left posterior heel over the Achilles tendon. The patient has completed a course of treatment with EpiFix. She has also completed a course of hyperbaric oxygen therapy. The patient has undergone percutaneous revascularization of the left lower extremity by Dr. Alejo on 2 occasions on 10/07/2018. The Achilles tendon was debrided at bedside by Dr. Ori Mata. Since the patient's visit on 02/17/2019, Ms. Greenwood was admitted to the [facility] for a congestive heart failure exacerbation. The patient also reports the presence of an ulceration over the right lateral ankle. PHYSICAL EXAMINATION: VITAL SIGNS: Temperature 97.6, pulse 70, respirations 20, blood pressure 121/59. Accu-Chek 139. EXTREMITIES: Two open areas over the left posterior heel are present. These areas are present over an area of the left posterior heel, which measures approximately 6.3 x 2.5 cm. No purulent drainage is associated with either open area. No cellulitis of the left foot or ankle is appreciated. No maceration of the skin of the left foot or ankle is present. No significant edema of the left foot is present on exam today. An ulceration over the right lateral ankle is present which measures approximately 1.8 x 1.6 cm. No purulent drainage is associated with the wound. No cellulitis of the right foot or ankle is appreciated. No maceration of the skin of the periwound is noted. No significant edema of the right foot is present on exam today. ASSESSMENT AND PLAN: 1. Ulceration of left posterior heel. The patient also has an ulceration of the right lateral ankle. For the left posterior heel, the patient has completed courses of treatment with EpiFix and hyperbaric oxygen therapy. SilvaSorb gel sheet followed by Webril and Coban will be applied to the small open areas over the left posterior heel today. Dressing changes are to be performed 3 times per week after cleansing and irrigation with the assistance of Home Health. For the ulceration over the right lateral ankle, dressing changes of SilvaSorb gel sheet followed by Allevyn are also to be performed 3 times per week after cleansing and irrigation. I will see Ms. Greenwood again in 2 weeks. 2. Diabetes mellitus. The patient's Accu-Chek in clinic today is 139. The patient has been reminded that for optimal wound healing, her blood glucoses should remain below 150. 3. Hypertension. 4. Atrial fibrillation, status post ablation. 5. Coronary artery disease. 6. Chronic obstructive pulmonary disease. 7. Peripheral vascular disease. The patient's daughter states that Ms. Greenwood will follow up with Dr. Alejo in regard to the need for percutaneous revascularization of the right lower extremity. Job ID: [id number]
[2019-03-10] MEDS ORDERED: Sodium Chloride 0.9% 15 ML NEB ONE (18:00)
[2019-03-10] MEDS ORDERED: Lidocaine 2% PF 100 mg/5 ml Syringe ONE (18:00)
== END 2019-03-10 14:45 | disposition home or self-care (01) ==
LOC: WCC 14:44
PROVIDERS: ATTEND Family Medicine
DX: E11.51 Type 2 diabetes mellitus with diabetic peripheral angiopathy without gangrene (principal); L97.323 Non-pressure chronic ulcer of left ankle with necrosis of muscle
CPT/HCPCS: 36416; A4218; J2001

== ENCOUNTER → 2019-03-17 | Day surgery (SDC) | payer MEDICARE, BC ==
[2019-03-14 13:19] VITALS: BMI 30.9
[~2019-03-17] MED LIST changes: +Lidocaine 1% PF 5 ML VIAL ONE; -Lidocaine 2% PF 100 mg/5 ml Syringe ONE; +PHENYLEPHRINE-NS 100 MCG/ML 10 ML SYRINGE ONE; +PROPOFOL 200 MG/20 ML VIAL ONE; -Sodium Chloride 0.9% 15 ML NEB ONE; +ePHEDrine 50 MG/ML VIAL ONE
--- NOTE | 2019-03-17 19:27 | OP ---
DATE OF PROCEDURE: 03/17/2019 PRIMARY PHYSICIAN: Dr. Noe Melchor. SURGEON: Noe Pineda MD. FRONT DESK HOST SURGEON: None. PROCEDURES PERFORMED: 1. EGD with biopsies. 2. Colonoscopy, diagnostic. INDICATIONS: 1. Anemia. 2. Rectal bleeding. 3. Positive FOBT. MEDICATIONS: See Anesthesia record. FINDINGS: After discussion of the risks, benefits, and alternatives of the procedure, informed consent was obtained and witnessed. Pre endoscopic cardiopulmonary examination was satisfactory. Time-out was performed before sedation was achieved. Sedation was achieved with Anesthesia assistance in the endoscopy unit. A Pentax adult upper endoscope was placed into the oropharynx and passed through the cricopharyngeus under direct visualization. The esophageal mucosa appeared normal with a normal-appearing Z-line. The endoscope was advanced into the stomach. Forward and retroflexed views of the entire gastric mucosa were obtained. There was no evidence of any old blood or active bleeding in the stomach. In the gastric fundus, there was some patchy erythema and friability consistent with nonerosive gastritis. Biopsies were obtained from the gastric antrum body and fundus to rule out H. pylori infection. The endoscope was advanced through the pylorus and into the first and second portion of the duodenum which appeared normal. The upper endoscope was completely withdrawn and the patient was repositioned. Digital rectal exam was performed which demonstrated some external hemorrhoidal skin tags. A Pentax adult colonoscope was inserted into the anus and passed forward to the cecum in the usual fashion. The cecal base was identified by the appendiceal orifice as well as the ileocecal valve. The terminal ileum was not intubated. The colonoscope was slowly withdrawn in a gradual and circumferential manner with careful examination of the entire colonic mucosa. The quality of the prep was good. The colonic mucosa appeared normal throughout. There was no evidence of any old blood, active bleeding, or bleeding lesions throughout the colon. There is diverticulosis in the sigmoid colon. Retroflexion in the rectum demonstrates medium sized to large internal hemorrhoids. This is the suspected site of her recurrent bleeding symptoms. The colonoscope was completely withdrawn and the patient allowed to recover. The patient tolerated the procedure well. There were no immediate postprocedure complications. IMPRESSION: 1. Nonerosive gastritis in the gastric fundus. Biopsy to rule out H. pylori. 2. Otherwise normal EGD. 3. Sigmoid diverticulosis. 4. Internal and external hemorrhoids. 5. Otherwise normal colonoscopy to the cecum. RECOMMENDATIONS: 1. Continue current medications, including the daily pantoprazole. 2. Follow up results on gastric biopsies. If H. pylori is present, treat with triple therapy and confirm eradication. 3. Conservative hemorrhoidal cares including stool softeners as needed. 4. If rectal bleeding remains a bothersome symptom despite conservative hemorrhoidal measures, surgical referral for consideration of hemorrhoidectomy could be considered. Job ID: [id number]
== END ==
LOC: SDC 10:23
PROVIDERS: ATTEND Internal Medicine
PROC: 0DB68ZX Excision of Stomach, Via Natural or Artificial Opening Endoscopic, Diagnostic (ICD-10-PCS; principal; 2019-03-17)
PROC: 0DJD8ZZ Inspection of Lower Intestinal Tract, Via Natural or Artificial Opening Endoscopic (ICD-10-PCS; 2019-03-17)
DX: K29.51 Unspecified chronic gastritis with bleeding (principal); B96.81 Helicobacter pylori [H. pylori] as the cause of diseases classified elsewhere; K57.31 Diverticulosis of large intestine without perforation or abscess with bleeding; K64.4 Residual hemorrhoidal skin tags; K64.8 Other hemorrhoids; D50.0 Iron deficiency anemia secondary to blood loss (chronic); K22.70 Barrett's esophagus without dysplasia; K74.60 Unspecified cirrhosis of liver; K21.9 Gastro-esophageal reflux disease without esophagitis; Z87.891 Personal history of nicotine dependence; Z88.5 Allergy status to narcotic agent; Z79.84 Long term (current) use of oral hypoglycemic drugs; Z79.891 Long term (current) use of opiate analgesic; Z79.899 Other long term (current) drug therapy
CPT/HCPCS: 43239; G0121; 88305; 88312; J2001; J2704; J3490

== ENCOUNTER 2019-03-24 09:13 | Outpatient (CLI) | payer MEDICARE, BC ==
--- NOTE | 2019-03-24 10:19 | PRG ---
DATE OF SERVICE: 03/24/2019 HISTORY: Ms. Kalie Greenwood is a very pleasant 83-year-old, accompanied by her daughter, who presents [facility] for evaluation of an ulceration of the left posterior heel over the Achilles tendon. The patient has completed a course of treatment with EpiFix. She has also completed a course of hyperbaric oxygen therapy. The patient has undergone percutaneous revascularization of the left lower extremity by Dr. Alejo on 2 occasions on 10/07/2018. The Achilles tendon was debrided at bedside by Dr. Ori Mata. Since the patient's last visit, Ms. Greenwood was admitted to the [facility] possibly for a congestive heart failure exacerbation. The patient reports the presence of 3 ulcerations of the right lower extremity. PHYSICAL EXAMINATION: VITAL SIGNS: Temperature 97.8, pulse 69, respirations 21, and blood pressure 111/56. EXTREMITIES: Only one open area over the left posterior heel is present within an area of eschar, which measures approximately 4.7 x 2.1 cm. No purulent drainage is associated with the open area. No cellulitis of the left foot or ankle is prepped insight. No cellulitis of the left foot or ankle is appreciated. No maceration of the skin of the left foot or ankle is present. No significant edema of the left foot is present on exam today. Three open wounds of the right lower extremity are present on exam today. An ulceration over the right lateral ankle is present, which measures approximately 1.8 x 1.6 cm. The dimensions of the wound at the time of the patient's last visit were also approximately 1.8 x 1.6 cm. No purulent drainage is associated with the wound. No cellulitis of the right foot or ankle is appreciated. No maceration of the skin of the periwound is noted. No significant edema of the right foot is present on exam today. LABORATORY DATA: Accu-Chek 126. ASSESSMENT AND PLAN: 1. Ulceration of left posterior heel. The patient also has 3 wounds of the right lower extremity. SilvaSorb gel sheet followed by Allevyn will be applied to each wound today. Dressing changes are to be performed 3 times per week after cleansing and irrigation with the assistance of Home Health. An [place] bandage will also be applied to the left foot and lower leg. I will see Ms. Greenwood again in 2 weeks. I will also discuss the treatment plan with Dr. Alejo. 2. Diabetes mellitus. The patient's Accu-Chek in clinic today is 126. The patient has been reminded that for optimal wound healing, her blood glucoses should remain below 150. 3. Hypertension. 4. Atrial fibrillation, status post ablation. 5. Coronary artery disease. 6. Chronic obstructive pulmonary disease. 7. Peripheral vascular disease. Arrangements will be made for Ms. Greenwood to be seen by Dr. Alejo for evaluation for percutaneous revascularization of the right lower extremity. Job ID: [id number]
[2019-03-24] MEDS ORDERED: Sodium Chloride 0.9% 15 ML NEB ONE (15:00)
[2019-03-24] MEDS ORDERED: Lidocaine 2% PF 100 mg/5 ml Syringe ONE (15:00)
== END 2019-03-24 09:14 | disposition home or self-care (01) ==
LOC: WCC 09:13
PROVIDERS: ATTEND Family Medicine
DX: E11.621 Type 2 diabetes mellitus with foot ulcer (principal); E11.622 Type 2 diabetes mellitus with other skin ulcer; L97.429 Non-pressure chronic ulcer of left heel and midfoot with unspecified severity; L97.319 Non-pressure chronic ulcer of right ankle with unspecified severity; L97.919 Non-pressure chronic ulcer of unspecified part of right lower leg with unspecified severity; L97.323 Non-pressure chronic ulcer of left ankle with necrosis of muscle; E11.51 Type 2 diabetes mellitus with diabetic peripheral angiopathy without gangrene; I10 Essential (primary) hypertension; I48.91 Unspecified atrial fibrillation; I25.10 Atherosclerotic heart disease of native coronary artery without angina pectoris; J44.9 Chronic obstructive pulmonary disease, unspecified; I73.9 Peripheral vascular disease, unspecified; Z98.890 Other specified postprocedural states
CPT/HCPCS: 36416; A4218; J2001